=== PATIENT | male | born 1935 | race Caucasian/White ===

== ENCOUNTER 2020-07-24 20:53 | Inpatient (IN) | payer MEDICARE ==
[2020-07-24] MEDS ORDERED: NALOXONE 0.4 MG/ML 1 ML VIAL IV PRN (21:44)
[2020-07-24] MEDS ORDERED: ONDANSETRON 4 MG/2 ML VIAL IVP PRN (21:44)
--- NOTE | 2020-07-24 21:44 | ED ---
General Adult HPI - General Chief complaint: Abdominal Pain Stated complaint: Abd Pain Time Seen by Provider: 07/24/20 20:56 Source: patient, EMS Mode of arrival: EMS Limitations: no limitations - History of Present Illness Initial comments: Dictation was produced using [employer] dictation software. please excuse any grammatical, word or spelling errors. This patient was cared for during a federal and state declared state of emergency secondary to Covid 19 Chief Complaint: 85-year-old male presents to the emergency department for duod enal obstruction. History of Present Illness: An 85-year-old male he is transferred from [facility] emergency Department. Briefly, patient is a complaining of nausea and epigastric abdominal pain. He's had several days of this. He was seen at [place], weeks ago for the same symptoms. Patient states that he does have some epigastric abdominal pain. His CT was performed that showed significant distention of the stomach, first and second and third portions of the duodenum. Vision has serial troponins that were both 0.1. Prilosec on a 13.4. Hemoglobin of 17.9. Metabolic panel was within acceptable limits. Lipase was normal. The ROS documented in this emergency department record has been reviewed and confirmed by me. Those systems with pertinent positive or negative responses have been documented in the HPI. All other systems are other negative and/or noncontributory. PHYSICAL EXAM: General Impression: Alert and oriented x3, not in acute distress HEENT: Normocephalic atraumatic, extra-ocular movements intact, pupils equal and reactive to light bilaterally, mucous membranes moist. Cardiovascular: Heart regular rate and rhythm Chest: Able to complete full sentences, no retractions, no tachypnea Abdomen: abdomen soft, although epigastric tenderness, tympanitic to percussion Musculoskeletal: Pulses present and equal in all extremities, no peripheral edema Motor: no focal deficits noted Neurological: CN II-XII grossly intact, no focal motor or sensory deficits noted Skin: Intact with no visualized rashes Psych: Normal affect and mood ED course: 85-year-old male presents with duodenal obstruction vital signs upon arrival shows heart rate of 112. Patient has history of A. fib A flutter. He takes eliquis. EKG shows atrial flutter. Patient's well-appearing at bedside. Discussed patient case with general surgery who recommends NG tube placement. Dr. Dawkins recommends admitting to medicine with Gen. surgery consult. EKG interpretation: Ventricular rate 120, atrial flutter, QRS 82, QTc 463. No DE prolongation, no QTC prolongation, no ST or T-wave changes noted. - Related Data Allergies Allergy/AdvReac Type Severity Reaction Status Date / Time No Known Allergies Allergy Verified 07/24/20 21:02 Review of Systems ROS Statement: Those systems with pertinent positive or pertinent negative responses have been documented in the HPI. ROS Other: All systems not noted in ROS Statement are negative. Past Medical History Past Medical History: Atrial Flutter, Hypertension, Prostate Disorder History of Any Multi-Drug Resistant Organisms: None Reported Past Surgical History: Unable to Obtain Past Psychological History: No Psychological Hx Reported Smoking Status: Never smoker Past Alcohol Use History: Occasional Past Drug Use History: None Reported General Exam Limitations: no limitations Course Vital Signs 07/24/20 20:56 Temperature 98.3 F Pulse Rate 112 H Respiratory 18 Rate Blood Pressure 127/102 O2 Sat by Pulse 97 Oximetry Disposition Clinical Impression: Duodenal obstruction Disposition: ADMITTED IP TO [facility] Condition: Fair Referrals: Mariano Pro MD [Primary Care Provider] - 1-2 days Decision Time: 21:44
[2020-07-24] MEDS: SODIUM CHLORIDE 0.9% 1,000 ML IV SCH (22:19)
--- NOTE | 2020-07-25 02:10 | P.HPIM ---
History of Present Illness H&P Date: 07/25/20 The patient is an 85-year-old male with a PMH of mild dementia w/ history of sun-downing, hypertension and A. fib on Eliquis who was sent in from [facility] due to suspected bowel obstruction. The patient was a poor historian and thereby history obtained from the chart and from the daughter Sarah Martinez ([phone]). The daughter notes that he had presented to [facility] due to nausea, vomiting, and constipation. She notes that he was previously seen at [place] a few weeks ago for similar complaints and had also seen Dr Reynoso (GI) in the clinic. He has been experiencing 5-6 episodes of NBNB emesis daily for the past several weeks and that his last BM was [address] Reynoso had prescribed the patient Miralax and advised increased water intake. Daughter notes that over the past few years, the patient's mental status gradually deteriorated where he is now normally alert and oriented to person and place during the daytime and is more confused often at night. The patient denied abdominal pain at time of interview. He also denied additional complaints including chest pain, shortness of breath, fever, chills, cough, headaches, dizziness. The patient underwent an extensive evaluation at [facility] which was all reviewed. CT abdomen and pelvis revealed significant distention of the stomach and the first second and third portions of the duodenum along with retroperitoneal adenopathy in the periaortic region which may be the cause of the duodenal obstruction. Furthermore it revealed significant enlargement of the prostate with resulting elevation of the bladder floor along with 1.1 cm enhancing nodular density projecting from the anterior aspect of the right kidney with possibility of malignancy considered. Laboratory evaluation revealed a WBC count of 13.4, hemoglobin 17.9, platelets 245, sodium 134, potassium 3.5, chloride 95, CO2 31, BUN 13, creatinine 1.2, glucose 176, calcium 9.5, AST 14, ALT 14, T bili 1.0, Troponin I of 0.01, and lipase 85. EKG had revealed a flutter with variable AV block at 82 bpm. Review of Systems Pertinent positives and negatives as discussed in HPI, a complete review of systems was performed and all other systems are negative. Past Medical History Past Medical History: Atrial Flutter, Hypertension, Prostate Disorder History of Any Multi-Drug Resistant Organisms: None Reported Past Surgical History: Unable to Obtain Past Psychological History: No Psychological Hx Reported Smoking Status: Never smoker Past Alcohol Use History: Occasional Past Drug Use History: None Reported - Past Family History Mother Family Medical History: Diabetes Mellitus Medications and Allergies Home Medications Medication Instructions Recorded Confirmed Type Apixaban [Eliquis] 2.5 mg PO BID 07/24/20 07/24/20 History Metoprolol Tartrate [Lopressor] 50 mg PO BID 07/24/20 07/24/20 History amLODIPine [Norvasc] 2.5 mg PO HS 07/24/20 07/24/20 History lisinopriL 40 mg PO HS 07/24/20 07/24/20 History Allergies Allergy/AdvReac Type Severity Reaction Status Date / Time No Known Allergies Allergy Verified 07/24/20 22:08 Physical Exam Vitals: Vital Signs Temp Pulse Pulse Resp BP BP Pulse Ox 07/24/20 23:09 117 H 18 137/107 97 07/24/20 22:06 112 H 18 139/95 94 L 07/24/20 20:56 98.3 F 112 H 18 127/102 97 Intake and Output 07/24/20 07/24/20 07/25/20 14:59 22:59 06:59 Output Total 250 Balance -250 Output: Urine 250 Other: Voiding Method Urinal # Voids 0 Weight 90.718 kg 90.718 kg General: non toxic, no distress, appears younger than stated age, overweight Derm: no unusual rashes/lesions no unusual ecchymoses, warm, dry Head: atraumatic, normocephalic, symmetric Eyes: EOMI, no lid lag, anicteric sclera, pupils equal round reactive to light ENT: Nose and ears atraumatic, no thrush, no pharyngeal erythema Neck: No thyromegaly, no cervical lymphadenopathy, trachea midline, supple Mouth: no lip lesion, mucus membranes moist Cardiovascular: S1S2 reg, no murmur, positive posterior tibial pulse bilateral, no edema, capillary refill less than 2 seconds Lungs: CTA bilateral, no rhonchi, no rales , no accessory muscle use Abdominal: Nondistended, nontender to palpation, no guarding, no appreciable organomegaly Ext: no gross muscle atrophy, muscle strength 5 out of 5 in all 4 extremities grossly, no contractures, Neuro: CN II-XI grossly intact, light touch intact all 4 extremities, finger to nose within normal limits, Psych: Alert, oriented only to self, believes he is at his house Thrombosis Risk Factor Assmnt - Choose All That Apply Any of the Below Risk Factors Present?: Yes Each Factor Represents 1 point: Obesity (BMI >25) Other Risk Factors: Yes Each Risk Factor Represents 3 Points: Age 75 years or older Other congenital or acquired thrombophilia - If yes, enter type in comment: No Thrombosis Risk Factor Assessment Total Risk Factor Score: 4 Thrombosis Risk Factor Assessment Level: Moderate Risk Assessment and Plan Plan: Small bowel obstruction, possibly secondary to underlying malignancy -Surgery consulted -Patient ripped out his IV. Patient very unlikely to tolerate NGT placement for now. Attempt in am. -Oncology consult for further malignancy workup -C/w IVFs -Anti-emetics Elevated troponin -Patient denying chest pain or SOB -Trend for now -Cardiac monitoring Leukocytosis -Likely secondary to acute stressor -Monitor for now Hyperglycemia -Check A1C Hyponatremia, likely secondary to poor oral intake in setting of obstruction -Continue with IV fluids and monitor BMP Chronic conditions: Hypertension, A. fib/flutter -Continue with home medications DVT prophylaxis -Eliquis The patient is admitted with an anticipated greater than 2 midnight stay for evaluation of SBO CODE STATUS: Full Code Discussed with: Patient, daughter Anticipated discharge date: 2-[address]: Home A total of 35 minutes was spent on the care of this complex patient more than 50% of the time was spent in counseling and care coordination.
--- NOTE | 2020-07-25 06:39 | P.GSCN ---
History of Present Illness Consult date: 07/25/20 History of present illness: CHIEF COMPLAINT: Intractable nausea and vomiting with duodenal obstruction HISTORY OF PRESENT ILLNESS: The patient is a 85 year old male admitted as transfer from [facility] following intractable nausea and vomiting. At the outside institution, CT findings was consistent with duodenal obstruction resulting in his transfer Additional history is obtained by patient's nurse as the patient has baseline confusion. Per nursing report, patient has intractable nausea and vomiting ongoing for 1 month. Also he has one-week history of constipation . Reports of his from nursing. He is on blood thinner, Eliquis. Last dose was within the last 2 days. Patient denies any active abdominal pain or nausea at this time. He is comfortable in appearance. He has been nothing by mouth. PAST MEDICAL HISTORY: See list and reviewed PAST SURGICAL HISTORY: See list and reviewed MEDICATIONS: See list and reviewed ALLERGIES: See list and reviewed SOCIAL HISTORY: See list and reviewed FAMILY HISTORY: See list and reviewed REVIEW OF ORGAN SYSTEMS: CONSTITUTIONAL: No fevers or chills since admission EYES: Denies any trouble with vision. No glasses. HEENT: No difficulties with hearing. No nosebleeds. RESPIRATORY: Denies active troubles with breathing. No clinical history of recent pneumonia. CARDIOVASCULAR: Has atrial fibrillation and on chronic blood thinners. GASTROINTESTINAL: Recent intractable nausea vomiting with constipation. GENITOURINARY: No current blood in urine or increased urinary frequency. NEUROLOGICAL: Denies any numbness or tingling along the distal extremities. No seizure disorders or headaches. MUSCULOSKELETAL: Denies current back pain, stiffness or joint arthritis. SKIN: No current skin cancer. No rash. PSYCHIATRIC: No current depression or suicidal thoughts. Has mild dementia. ENDOCRINE: No current thyroid disorders. No blood sugar glucose intolerance. HEME/LYMPHATIC: Currently on blood thinners. No recent deep venous thrombosis. PHYSICAL EXAM: VITALS: Reviewed CONSTITUTIONAL: Well developed and in no acute distress. EYES: Conjuctivae without sclera icterus. Extraocular movements grossly intact. HEAD, EARS, NOSE, THROAT: Moist buccal mucosa. Head is atraumatic, normocephalic. No nasal drainage. Hears conversational speech. NECK: Supple. No thyroidomegaly. RESPIRATORY: Non-labored respirations and equal bilateral excursions. No gross wheezes. CARDIOVASCULAR: Irregular rate. Irregular rhythm. Extremities without moderate edema. Palpable 2+ radial pulses. ABDOMEN: Soft. No peritonitis. LYMPH: No neck lymphadenopathy. MUSCULOSKELETAL: Nail and fingers with good capillary refill. SKIN: Warm and well perfused with good skin turgor. NEUROLOGIC: Cranial nerves II through XII grossly intact. . No focal or lateralizing signs. PSYCH: Appropriate affect. Alert and oriented to person. CLINCAL LABS: Reviewed. WBC elevated at 13.1. Troponin mildly elevated 0.106. Creatinine mildly elevated 1.11. Coronary virus negative. EKG: Atrial flutter with variable AV block including septal infarct. MEDICAL RECORDS: Outside CT of the abdomen and pelvis report distention of the stomach including to duodenum. Lipase was normal. Serial troponins within normal limits. Hemoglobin was elevated over 15 due to dehydration. ASSESSMENT: 1. Intractable nausea and vomiting with duodenal obstruction 2. Atrial flutter 3. Chronic anticoagulation 4. Elevated hemoglobin due to dehydration PLAN: 1. Will proceed with upper endoscopy for diagnostic assessment. 2. Upper endoscopy with dilation also described. 3. Patient elevated risk for complications due to comorbidities of chronic anticoagulation including pre-existing cardiopulmonary disease 4. Nothing by mouth at this time 5. IV fluid hydration with markedly elevated hemoglobin and dehydration Thank you for this kind consultation. Past Medical History Past Medical History: Atrial Flutter, Hypertension, Prostate Disorder History of Any Multi-Drug Resistant Organisms: None Reported Past Surgical History: Unable to Obtain Past Psychological History: No Psychological Hx Reported Smoking Status: Never smoker Past Alcohol Use History: Occasional Past Drug Use History: None Reported - Past Family History Mother Family Medical History: Diabetes Mellitus Medications and Allergies Home Medications Medication Instructions Recorded Confirmed Type Apixaban [Eliquis] 2.5 mg PO BID 07/24/20 07/24/20 History Metoprolol Tartrate [Lopressor] 50 mg PO BID 07/24/20 07/24/20 History amLODIPine [Norvasc] 2.5 mg PO HS 07/24/20 07/24/20 History lisinopriL 40 mg PO HS 07/24/20 07/24/20 History Allergies Allergy/AdvReac Type Severity Reaction Status Date / Time No Known Allergies Allergy Verified 07/24/20 22:08 Surgical - Exam Vital Signs Temp Pulse Resp BP Pulse Ox 98.3 F 112 H 18 127/102 97 07/24/20 20:56 07/24/20 20:56 07/24/20 20:56 07/24/20 20:56 07/24/20 20:56 Results - Labs 07/25/20 06:44 07/25/20 06:44 Assessment and Plan (1) Intractable nausea and vomiting Current Visit: Yes Status: Acute Code(s): R11.2 - NAUSEA WITH VOMITING, UNSPECIFIED SNOMED Code(s): 695012429 (2) Constipation Current Visit: Yes Status: Acute Code(s): K59.00 - CONSTIPATION, UNSPECIFIED SNOMED Code(s): 43734919 (3) Atrial flutter Current Visit: Yes Status: Acute Code(s): I48.92 - UNSPECIFIED ATRIAL FLUTTER SNOMED Code(s): 5941166 (4) Chronic anticoagulation Current Visit: Yes Status: Acute Code(s): Z79.01 - ASSISTED (CURRENT) USE OF ANTICOAGULANTS SNOMED Code(s): 283979514 (5) Dementia Current Visit: Yes Status: Acute Code(s): F03.90 - UNSPECIFIED DEMENTIA WITHOUT BEHAVIORAL DISTURBANCE SNOMED Code(s): 38990337 (6) Duodenal obstruction Current Visit: Yes Status: Acute Code(s): K31.5 - OBSTRUCTION OF DUODENUM SNOMED Code(s): 57524286
[2020-07-25] MEDS: SODIUM CHLORIDE 0.9% 1,000 ML IV SCH ×3 (06:49→22:19)
[2020-07-25 07:28] LABS: Basophils # (A) 0.1 k/uL (0-0.2); Basophils % (A) 0 %; Eosinophils # (A) 0.1 k/uL (0-0.7); Eosinophils % (A) 1 %; Lymphocytes # (A) 3.3 k/uL (1.0-4.8); Lymphocytes % (A) 25 %; MCH 31.5 pg (25.0-35.0); MCV 92.5 fL (80.0-100.0); Mean Platelet Volume 7.8; Monocytes # (A) 1.3 k/uL (0-1.0); Monocytes % (A) 10 %; Neutrophils # (A) 7.9 k/uL (1.3-7.7); Neutrophils % (A) 60 %; Platelet Count 242 k/uL (150-450); RDW 12.3 % (11.5-15.5); WBC 13.1 k/uL (3.8-10.6)
[2020-07-25 07:41] LABS: Albumin 3.5 g/dL (3.5-5.0); Calcium 9.2 mg/dL (8.4-10.2); Magnesium 1.8 mg/dL (1.6-2.3); Potassium 4.2 mmol/L (3.5-5.1); Total Bilirubin 1.2 mg/dL (0.2-1.3); Total Protein 6.1 g/dL (6.3-8.2)
[2020-07-25] MEDS ORDERED: METOPROLOL TARTRATE 50 MG TAB PO SCH (09:00)
[2020-07-25] MEDS ORDERED: APIXABAN 2.5 MG TABLET PO SCH (09:00)
[2020-07-25] MEDS ORDERED: LIDOCAINE 1% INJ 10MG/ML (20 ML MDV) ONE (10:04)
[2020-07-25] MEDS ORDERED: PROPOFOL 10 MG/ML 20 ML VIAL IV ONE (10:04)
[2020-07-25] MEDS ORDERED: IV FLUID CONTINUATION 600 ML IV ONE (10:05)
--- NOTE | 2020-07-25 10:34 | P.PCN ---
Date of Procedure: 07/25/20 Description of Procedure: PREOPERATIVE DIAGNOSIS: Duodenal obstruction, abnormal computed tomography scan Intractable nausea and vomiting POSTOPERATIVE DIAGNOSIS: Upper esophageal obstruction Duodenal obstruction, abnormal computed tomography scan Intractable nausea and vomiting OPERATION: Attempted esophagogastroduodenoscopy aborted due to upper esophageal obstruction. SURGEON: Dana Regalado MD ANESTHESIA: MAC. INDICATIONS: The patient is a 85-year-old male who presents with intractable nausea and vomiting including abnormal CT of duodenal obstruction. Upper endoscopy was offered for diagnostic Susman the therapeutic management. Benefits and risks of the procedure were described. Informed consent was obtained. DESCRIPTION: The patient was brought into the endoscopy suite and laid in the left lateral decubitus position. A pediatric Olympus gastroscope was passed along the posterior oropharynx. Despite open airway, jaw-thrust, the scope could not pass beyond the posterior oropharynx/upper esophageal sphincter. The scope persistently retroflexed into the posterior oropharynx. Features of Zenker's diverticulum cannot be excluded including hypertensive upper esophageal sphincter. Patient was awakened without sequelae. FINDINGS: Hypertensive upper esophageal sphincter prohibiting advancement of scope into the esophagus Suspicious features of Zenker's diverticulum cannot be excluded RECOMMENDATIONS: 1. Recommend ENT referral for workup Zenker's diverticulum 2. Nothing by mouth at this time 3. Additional diagnostic studies may include CT chest/neck including modified barium swallow pending ENT assessment
[2020-07-25] MEDS ORDERED: SODIUM CHLORIDE 0.9% 1,000 ML IV ONE (10:36)
[2020-07-25] MEDS ORDERED: METOPROLOL TARTRATE 5 MG/5 ML VIAL IVP PRN (11:15)
--- NOTE | 2020-07-25 11:20 | P.PN ---
Subjective Progress Note Date: 07/25/20 Principal diagnosis: Esophageal obstruction Patient was seen and evaluated by me today. He is awake and alert. He appeared confused. He was only oriented to himself. Nursing staff informed me that patient has underlying dementia. Patient denies any complaint this morning. He denies any chest pain or nausea. He said that he did not have a bowel movement for several days. He is currently nothing by mouth and scheduled for EGD. Objective - Vital Signs Vital signs: Vital Signs Temp 98.3 F 07/25/20 07:45 Pulse 84 07/25/20 07:45 Resp 20 07/25/20 07:45 BP 132/73 07/25/20 07:45 Pulse Ox 94 L 07/25/20 07:45 Intake & Output 07/24/20 07/25/20 07/25/20 18:59 06:59 18:59 Intake Total 50 Output Total 250 Balance -250 50 Weight 71.5 kg Intake: IV 50 Oral 0 Output: Urine 250 Other: Voiding Method Urinal # Voids 0 0 # Bowel Movements 0 - Exam General: The patient is awake and alert, in no distress Eye: there is normal conjunctiva bilaterally. Neck: The neck is supple, there is no JVD. Cardiovascular: Normal S1-S2, no S3-S4, no murmurs. Respiratory: Lungs clear to auscultation bilaterally Gastrointestinal: Abdomen is soft, nontender Musculoskeletal: There is no pedal edema. Neurological:. Speech is normal. Skin: Skin is warm and dry - Labs CBC & Chem 7: 07/25/20 06:44 07/25/20 06:44 Labs: Abnormal Lab Results - Last 24 Hours (Table) 07/25/20 07/25/20 07/25/20 Range/Units 06:44 06:44 06:44 WBC 13.1 H (3.8-10.6) k/uL Neutrophils # 7.9 H (1.3-7.7) k/uL Monocytes # 1.3 H (0-1.0) k/uL Chloride 97 L (98-107) mmol/L Carbon Dioxide 32 H (22-30) mmol/L Glucose 120 H (74-99) mg/dL Troponin I 0.106 H* (0.000-0.034) ng/mL Total Protein 6.1 L (6.3-8.2) g/dL Assessment and Plan Assessment: This is a 85-year-old male with complex past medical history noted below significant for underlying dementia who was transferred from [facility] to 2 suspected bowel obstruction. Patient was evaluated in the ER and currently admitted to the hospital for further management of his medical problems noted below. 1. Esophageal and Duodenal obstruction: Patient was seen and evaluated by general surgery. Attempted EGD today was aborted secondary to esophageal obstruction. ENT consulted for further evaluation and possible Zenker's diverticulum. Computed tomography scan of the abdomen and pelvis at the outside hospital shows significant distention of the stomach and first, second, and third portion of the duodenal along with retroperitoneal adenopathy 2. Troponin elevation, most likely non-thrombotic troponin leak secondary to rapid ventricular response on presentation. Patient denies any chest pain. 12- lead EKG showed no acute ischemic changes. Cardiology consulted for further evaluation. We will continue to trend troponin. Echocardiogram ordered. 3. Underlying dementia with history of sundowning. Patient daughter Sarah was contacted the admitting physician. Phone #[phone] 4. Chronic medical problems A. fib on anticoagulation with Eliquis, hypertension, Continue nothing by mouth for now No oral medication at this time May use IV metoprolol as needed Barium swallow study ordered by neurosurgery Hold off on anticoagulation for now
[2020-07-25] MEDS ORDERED: HEPARIN SODIUM,PORCINE 5,000 UNIT/ML 1 ML VIAL IV PRN (12:06)
[2020-07-25] MEDS ORDERED: HEPARIN SODIUM,PORCINE 5,000 UNIT/ML 1 ML VIAL IV ONE (12:06)
--- NOTE | 2020-07-25 12:09 | P.CRDCN ---
History of Present Illness History of present illness: HISTORY OF PRESENTING ILLNESS This is a pleasant 85-year-old male past medical history significant for chronic persistent atrial fibrillation on long-term anticoagulation and hypertension. Bola follows in the office with Dr. Valles. We have been asked to see in consultation for elevated troponin. Was transferred here from [facility] emergency department. He apparently has been suffering with constipation for the previous one week. He has been following as an outpatient with Dr. Juani Reynoso due to this. He was also having nausea/vomiting. He underwent a computed tomography scan consistent with duodenal obstruction. He has been evaluated by Dr. Regalado who took the patient for an EGD this morning and was unsuccessful at passing the probe due to suspected esophageal obstruction. She has requested ENT evaluation and CT of the chest/neck. He is currently sitting u p in his bed in no acute distress. He is comfortable with no symptoms of chest pain, shortness of breath, dizziness or palpitations. He is conversing appropriately however is extremely confused. He is unable to verbalize why he came to the hospital. He is unable to recall his past medical history, circumstances of this hospitalization were the time. He saw Dr. Valles in the office in 2019 and at that time as Eliquis was decreased to 2.5 mg twice a day secondary to black stools. Dr. Valles recommended outpatient follow-up with GI for further recommendations and endoscopies. DIAGNOSTICS EKG reveals typical 2:1 atrial flutter. Laboratory reviewed, WBC 13.4, hemoglobin 17.9, platelets 245, sodium 134, potassium 3.5, creatinine 1.2, troponin 0.106. Current cardiac medications include Eliquis 2.5 mg twice a day, Lopressor 50 mg twice a day, amlodipine 2.5 mg at bedtime and lisinopril 40 mg at bedtime. Most recent echocardiogram obtained in the office August 2019 revealed preserved LV systolic function, [id number] mitral regurgitation, moderate tricuspid regurgitation and mild pulmonary hypertension. Most recent stress test performed in the office December 2019 with a Lexiscan stress test was negative for reversible ischemia. REVIEW OF SYSTEMS At the time of my exam: CONSTITUTIONAL: Denies fever or chills. CARDIOVASCULAR: Denies chest pain, shortness of breath, orthopnea, PND or palpitations. RESPIRATORY: Denies cough. GASTROINTESTINAL: Denies abdominal pain, diarrhea, constipation, nausea or vomiting. MUSCULOSKELETAL: Denies myalgias. NEUROLOGIC: Denies numbness, tingling, headacbe or weakness. ENDOCRINE: Denies fatigue, weight change, polydipsia or polyurina. GENITOURINARY: Denies burning, hematuria or urgency with micturation. HEMATOLOGIC: Denies history of anemia or bleeding. PHYSICAL EXAMINATION Blood pressure 132/73 heart rate 84 afebrile and maintaining oxygen saturation on room air. CONSTITUTIONAL: No apparent distress. HEENT: Head is normocephalic. Pupils are equal, round. Sclerae anicteric. Mucous membranes of the mouth are moist. No JVD. No carotid bruit. CHEST EXAMINATION: Lungs are clear to auscultation. No chest wall tenderness is noted on palpation or with deep breathing. HEART EXAMINATION: Irregular rate and rhythm. S1, S2 heard. No murmurs, gallops or rub. ABDOMEN: Soft, nontender. Positive bowel sounds. EXTREMITIES: 2+ peripheral pulses, no lower extremity edema and no calf tenderness. NEUROLOGIC EXAMINATION: Patient is awake, alert and oriented x3. ASSESSMENT Duodenal obstruction Leukocytosis Elevated troponin Altered mental status Hypertension Chronic persistent atrial fibrillation on eliquis History of GI bleeding History of dementia PLAN Initiate IV heparin infusion for thromboemoblic protection. Change lopressor to 5mg IV BID scheduled. Obtain 2D echocardiogram and doppler study to assess cardiac structure and fun ction. Further recommendations to follow based on clinical course. Thank you kindly for this consultation. Nurse Practitioner note has been reviewed, I agree with a documented findings and plan of care. Patient was seen and examined. Past Medical History Past Medical History: Atrial Flutter, Hypertension, Prostate Disorder History of Any Multi-Drug Resistant Organisms: None Reported Past Surgical History: Unable to Obtain Past Psychological History: No Psychological Hx Reported Smoking Status: Never smoker Past Alcohol Use History: Occasional Past Drug Use History: None Reported - Past Family History Mother Family Medical History: Diabetes Mellitus Medications and Allergies Home Medications Medication Instructions Recorded Confirmed Type Apixaban [Eliquis] 2.5 mg PO BID 07/24/20 07/24/20 History Metoprolol Tartrate [Lopressor] 50 mg PO BID 07/24/20 07/24/20 History amLODIPine [Norvasc] 2.5 mg PO HS 07/24/20 07/24/20 History lisinopriL 40 mg PO HS 07/24/20 07/24/20 History Allergies Allergy/AdvReac Type Severity Reaction Status Date / Time No Known Allergies Allergy Verified 07/24/20 22:08 Physical Exam Vitals: Vital Signs Temp Pulse Pulse Resp BP BP Pulse Ox 07/25/20 07:45 98.3 F 84 20 132/73 94 L 07/25/20 05:10 98.3 F 111 H 17 152/99 95 07/25/20 03:09 18 07/24/20 23:09 117 H 18 137/107 97 07/24/20 22:06 112 H 18 139/95 94 L 07/24/20 20:56 98.3 F 112 H 18 127/102 97 Intake and Output 07/24/20 07/25/20 07/25/20 22:59 06:59 14:59 Intake Total 50 Output Total 250 Balance -250 50 Intake: IV 50 Oral 0 Output: Urine 250 Other: Voiding Method Urinal # Voids 0 0 # Bowel Movements 0 Weight 90.718 kg 71.5 kg Results 07/25/20 06:44 07/25/20 06:44 Cardiac Enzymes 07/25/20 07/25/20 Range/Units 06:44 06:44 AST 21 (17-59) U/L Troponin I 0.106 H* (0.000-0.034) ng/mL CBC 07/25/20 Range/Units 06:44 WBC 13.1 H (3.8-10.6) k/uL RBC 5.40 (4.30-5.90) m/uL Hgb 17.0 (13.0-17.5) gm/dL Hct 50.0 (39.0-53.0) % Plt Count 242 (150-450) k/uL Comprehensive Metabolic Panel 07/25/20 Range/Units 06:44 Sodium 137 (137-145) mmol/L Potassium 4.2 (3.5-5.1) mmol/L Chloride 97 L (98-107) mmol/L Carbon Dioxide 32 H (22-30) mmol/L BUN 16 (9-20) mg/dL Creatinine 1.11 (0.66-1.25) mg/dL Glucose 120 H (74-99) mg/dL Calcium 9.2 (8.4-10.2) mg/dL AST 21 (17-59) U/L ALT 17 (4-49) U/L Alkaline Phosphatase 54 (38-126) U/L Total Protein 6.1 L (6.3-8.2) g/dL Albumin 3.5 (3.5-5.0) g/dL Current Medications Generic Name Dose Route Start Last Admin Trade Name Freq PRN Reason Stop Dose Admin Amlodipine Besylate 2.5 mg 07/25/20 21:00 Amlodipine 2.5 Mg Tab PO HS DOMINIQUE Apixaban 2.5 mg 07/25/20 09:00 Apixaban 2.5 Mg Tablet PO BID DOMINIQUE Sodium Chloride 1,000 mls @ 120 mls/hr 07/24/20 21:45 07/25/20 06:49 Saline 0.9% IV 120 mls/hr .Q8H20M DOMINIQUE Administration Sodium Chloride 1,000 mls @ 999 mls/hr 07/25/20 10:36 Saline 0.9% IV 07/25/20 11:36 .Q1H1M ONE Lisinopril 40 mg 07/25/20 21:00 Lisinopril 20 Mg Tab PO HS DOMINIQUE Metoprolol Tartrate 50 mg 07/25/20 09:00 Metoprolol Tartrate 50 Mg Tab PO BID DOMINIQUE Naloxone HCl 0.2 mg 07/24/20 21:44 Naloxone 0.4 Mg/Ml 1 Ml Vial IV Q2M PRN Opioid Reversal Ondansetron HCl 4 mg 07/24/20 21:44 Ondansetron 4 Mg/2 Ml Vial IVP Q8HR PRN Nausea And Vomiting Intake and Output 07/24/20 07/25/20 07/25/20 22:59 06:59 14:59 Intake Total 50 Output Total 250 Balance -250 50 Intake: IV 50 Oral 0 Output: Urine 250 Other: Voiding Method Urinal # Voids 0 0 # Bowel Movements 0 Weight 90.718 kg 71.5 kg 07/25/20 06:44 07/25/20 06:44
[2020-07-25 12:27] LABS: INR 1.1 (<1.2); Partial Thromboplastin Time 23.6 sec (22.0-30.0); Prothrombin Time 11.5 sec (9.0-12.0)
--- NOTE | 2020-07-25 12:40 | XR ---
EXAMINATION TYPE: XR abdomen 2V DATE OF EXAM: 07/25/2020 CLINICAL HISTORY: Pain and constipation. TECHNIQUE: Supine and upright views of the abdomen are obtained. COMPARISON: Outside CT from one day earlier. FINDINGS: Persistent significantly distended stomach with air-fluid level. There is progression of co ntrast in nondilated distal bowel loops into nondistended colonic loops along the periphery. Contrast from recent CT is filling bladder with mild trabeculated wall. Enlarged prostate gland noted on CT. Lung bases remain clear. No free air. IMPRESSION: Persistent severe gastric dilatation extending into duodenum. Ligament of Treitz cannot b e identified in normal position. Underlying malrotation not excluded. Advise nasogastric tube decompr ession. A [place] level critical message alert has been initiated for Dana Regalado via the [employer] Critical Results System on 07/25/2020 12:38 PM. This message alert has been sent to Dana Regalado via the preferences provided by the clinician for the receipt of Radiology Critical Findings. Linkdex e ID [id number].
[2020-07-25] MEDS: HEPARIN SOD,PORK IN 0.45% NACL 25,000 UNIT in 0.45% NACL 1 250ML.BAG IV SCH (12:51)
--- NOTE | 2020-07-25 15:31 | CT ---
EXAMINATION TYPE: CT neck chest w con DATE OF EXAM: 07/25/2020 COMPARISON: Abdomen CT scan 07/24/2020 HISTORY: failed EGD CT DLP: 516.5 mGycm Automated exposure control for dose reduction was used. CONTRAST: Performed with IV Contrast, patient injected with 100 mL of Isovue 300. Images were obtained from the level of the top of the frontal sinuses to the diaphragm with IV contra st. There is fairly normal aeration of the paranasal sinuses. Orbital margins are intact. There is no tyrese dence of orbital mass. Parotid glands are symmetric. Submandibular salivary glands are symmetric. Thy roid gland is symmetric. I see no significant cervical adenopathy. Tongue appears normal. Epiglottis is normal. There is some asymmetric increased soft tissue on the anterior right side of the orophary nx. This appears to be enlarged right tonsil. There is no evidence of superior mediastinal adenopathy. Thoracic aorta is atheromatous. There is no aneurysm or dissection. There is no sign of esophageal mass. There is minimal subsegmental atelectasis at the lung bases. There is no pleural effusion. There is n o pericardial effusion. There is no evidence of a pulmonary mass. There is some spurring in the lower thoracic spine. There is spurring in the thoracic spine. Sternum is intact. There is large fluid-florecita led stomach. Spleen appears intact. IMPRESSION: Dilated fluid-filled stomach could relate to gastric outlet obstruction. No evidence of esophageal mass. Asymmetric enlargement of the right tonsil. Dilated stomach also evident on the [place] CT scan yesterday.
--- NOTE | 2020-07-25 17:03 | P.PN ---
Progress Note - Text Progress Note Date: 07/25/20 at bedside. Daughter Caitlyn on the phone. Conference call with family and patient's case reviewed. Patient has been having problems for over 1 month. He has poor appetite. He does not re-collect spitting up his saliva. His at bedside confirms the severity of his memory loss including recent short-term memory. Spoke with oncology as well. Neck and chest CT also obtained and reviewed without adenopathy or mass. Plan for esophagram for esophageal dysmotility. May try repeat upper endoscopy following completion of studies. For dilated stomach which is confirmed chronic, may need operative decompression should less invasive attempts be unsuccessful. ENT consulted but will follow as outpatient. Will follow closely. Updates to family performed with care plan described. Surgical intervention also on hold due to recent Eliquis use.
[2020-07-25] MEDS: METOPROLOL TARTRATE 5 MG/5 ML VIAL IVP SCH (20:06)
[2020-07-25] MEDS ORDERED: amLODIPine 2.5 MG TAB PO SCH (21:00)
[2020-07-25] MEDS ORDERED: lisinopriL 20 MG TAB PO SCH (21:00)
[2020-07-26] MEDS: SODIUM CHLORIDE 0.9% 1,000 ML IV SCH (05:43)
[2020-07-26 07:49] LABS: Basophils % (A) 0 %; Eosinophils # (A) 0.1 k/uL (0-0.7); Eosinophils % (A) 1 %; HCT 45.1 % (39.0-53.0); HGB 14.6 gm/dL (13.0-17.5); Lymphocytes # (A) 2.8 k/uL (1.0-4.8); Lymphocytes % (A) 31 %; MCHC 32.4 g/dL (31.0-37.0); MCV 92.7 fL (80.0-100.0); Mean Platelet Volume 7.6; Monocytes % (A) 11 %; Neutrophils # (A) 4.9 k/uL (1.3-7.7); Neutrophils % (A) 54 %; Platelet Count 204 k/uL (150-450); RBC 4.86 m/uL (4.30-5.90); RDW 12.7 % (11.5-15.5); WBC 9.1 k/uL (3.8-10.6)
--- NOTE | 2020-07-26 07:59 | P.CONS ---
History of Present Illness - Reason for Consult Consult date: 07/25/20 [place] Obstruction concern of malignancy Requesting physician: Golden Melchor - Chief Complaint Nusea and Oscar - History of Present Illness Mr. Ornelas is a 85 year old male who initially presented to outside hospital, [facility] with complaints of intractable nausea and vomiting. CY was performed and findings was consistent with duodenal obstruction resulting in his transfer to [facility]. Patient is poor historian, per medical record has been having symptoms of constipation and intermittent vomiting over the past month. He is on blood thinner, Eliquis. He was evaluated by general surgery and plan for EGD to further assess. Review of Systems ROS unobtainable: due to mental status Past Medical History Past Medical History: Atrial Flutter, Hypertension, Prostate Disorder History of Any Multi-Drug Resistant Organisms: None Reported Past Surgical History: Unable to Obtain Past Psychological History: No Psychological Hx Reported Smoking Status: Never smoker Past Alcohol Use History: Occasional Past Drug Use History: None Reported - Past Family History Mother Family Medical History: Diabetes Mellitus Medications and Allergies Home Medications Medication Instructions Recorded Confirmed Type Apixaban [Eliquis] 2.5 mg PO BID 07/24/20 07/24/20 History Metoprolol Tartrate [Lopressor] 50 mg PO BID 07/24/20 07/24/20 History amLODIPine [Norvasc] 2.5 mg PO HS 07/24/20 07/24/20 History lisinopriL 40 mg PO HS 07/24/20 07/24/20 History Allergies Allergy/AdvReac Type Severity Reaction Status Date / Time No Known Allergies Allergy Verified 07/24/20 22:08 Physical Exam Vitals: Vital Signs Temp Pulse Pulse Resp BP BP Pulse Ox 07/25/20 07:45 98.3 F 84 20 132/73 94 L 07/25/20 05:10 98.3 F 111 H 17 152/99 95 07/25/20 03:09 18 07/24/20 23:09 117 H 18 137/107 97 07/24/20 22:06 112 H 18 139/95 94 L 07/24/20 20:56 98.3 F 112 H 18 127/102 97 Intake and Output 07/24/20 07/25/20 07/25/20 22:59 06:59 14:59 Intake Total 0 Output Total 250 Balance -250 0 Intake: Oral 0 Output: Urine 250 Other: Voiding Method Urinal # Voids 0 0 # Bowel Movements 0 Weight 90.718 kg 71.5 kg - Constitutional General appearance: cooperative, no acute distress - EENT Eyes: EOMI ENT: hard of hearing, NA/AT - Respiratory Respiratory: bilateral: diminished - Cardiovascular Rhythm: irregularly irregular - Gastrointestinal General gastrointestinal: decreased bowel sounds - Integumentary Integumentary: pale - Neurologic unable - Musculoskeletal Musculoskeletal: generalized weakness - Psychiatric dementia poor historian Results CBC & Chem 7: 07/26/20 06:59 07/25/20 06:44 Labs: Abnormal Lab Results - Last 24 Hours (Table) 07/25/20 07/25/20 07/25/20 Range/Units 06:44 06:44 06:44 WBC 13.1 H (3.8-10.6) k/uL Neutrophils # 7.9 H (1.3-7.7) k/uL Monocytes # 1.3 H (0-1.0) k/uL Chloride 97 L (98-107) mmol/L Carbon Dioxide 32 H (22-30) mmol/L Glucose 120 H (74-99) mg/dL Troponin I 0.106 H* (0.000-0.034) ng/mL Total Protein 6.1 L (6.3-8.2) g/dL Assessment and Plan (1) Atrial flutter Current Visit: Yes Status: Acute Code(s): I48.92 - UNSPECIFIED ATRIAL FLUTTER SNOMED Code(s): 2868689 (2) Chronic anticoagulation Current Visit: Yes Status: Acute Code(s): Z79.01 - OYSTER FISHERMAN (CURRENT) USE OF ANTICOAGULANTS SNOMED Code(s): 866874444 (3) Dementia Current Visit: Yes Status: Acute Code(s): F03.90 - UNSPECIFIED DEMENTIA WITHOUT BEHAVIORAL DISTURBANCE SNOMED Code(s): 15382982 (4) Duodenal obstruction Current Visit: Yes Status: Acute Code(s): K31.5 - OBSTRUCTION OF DUODENUM SNOMED Code(s): 22496657 (5) Intractable nausea and vomiting Current Visit: Yes Status: Acute Code(s): R11.2 - NAUSEA WITH VOMITING, UNSPECIFIED SNOMED Code(s): 056291410 Plan: Discussed with general surgery and given high blockage and low blockage unable to perform colonoscopy. Await ENT evaluation . Monitor for ischemic bowel and infection Del check CEA
[2020-07-26] MEDS: METOPROLOL TARTRATE 5 MG/5 ML VIAL IVP SCH ×2 (08:00→19:48)
[2020-07-26 08:44] LABS: Calcium 8.4 mg/dL (8.4-10.2); Magnesium 1.8 mg/dL (1.6-2.3); Potassium 3.8 mmol/L (3.5-5.1)
--- NOTE | 2020-07-26 12:24 | FL ---
EXAMINATION TYPE: FL barium swallow DATE OF EXAM: 07/26/2020 CLINICAL INDICATION: 85-year-old male dysphagia, Zenker's diverticulum. COMPARISON: Correlation CT 07/25/2020 Total Fluoroscopy Time: 2 minutes 4 seconds Total images: 37 FINDINGS: The initial few swallows resulted in large amount of jack aspiration with barium extending down into the right lower lobe bronchi. We suspect that this was due to the patient not expecting such a thick consistency of the liquid barium. However, subsequent swallows did demonstrate episodes of transient penetration. In addition, there is moderate thickening of the cricopharyngeus muscle noted. No Zenke r's diverticulum. Otherwise, the cervical and thoracic portions have a normal course and caliber. Occasional mild terti antonio peristaltic waves are noted. The mucosa is normal and no persistent filling defect is encountered . There is a tiny hiatal hernia visualized. Due to the previous aspiration, supine/prone imaging was no t performed and effervescent granules were not utilized. IMPRESSION: 1. Large amount of jack aspiration with barium extending down into the right lower lobe. Subsequentl y multiple episodes of transient penetration. The aspiration may have been due to the patient not exp ecting such a thick consistency of liquid barium. Speech pathology evaluation recommended. 2. Moderate CP hypertrophy/spasm without jack obstruction. 3. No evidence for Zenker's diverticulum. 4. Tiny hiatal hernia.
--- NOTE | 2020-07-26 13:00 | ECHOF ---
Referral Reason:elev trop MEASUREMENTS -------- HEIGHT: 175.3 cm WEIGHT: 72.1 kg BP: 131/72 RVIDd: 3.5 cm (< 3.3) IVSd: 1.7 cm (0.6 - 1.1) LVIDd: 3.1 cm (3.9 - 5.3) LVPWd: 1.9 cm (0.6 - 1.1) IVSs: 1.9 cm LVIDs: 2.9 cm LVPWs: 1.8 cm LA Diam: 4.2 cm (2.7 - 3.8) LAESV Index (A-L): 38.11 ml/m Ao Diam: 3.1 cm (2.0 - 3.7) AV Cusp: 1.1 cm (1.5 - 2.6) LA Diam: 4.0 cm (2.7 - 3.8) MV EXCURSION: 19.089 mm (> 18.000) MV EF SLOPE: 110 mm/s (70 - 150) EPSS: 0.4 cm RAP: 5.00 mmHg RVSP: 35.09 mmHg FINDINGS -------- Undetermined rhythm. This was a technically good study. The left ventricular size is normal. There is severe concentric left ventricular hypertrophy. Ove rall left ventricular systolic function is normal with, an EF between 60 - 65 %. The right ventricle is normal in size. LA is moderately dilated 34-39 ml/m2 The right atrial size is normal. There is mild aortic valve sclerosis. There is no evidence of aortic regurgitation. Mild mitral regurgitation is present. Mild tricuspid regurgitation present. There is mild pulmonary hypertension. The right ventricular systolic pressure, as measured by Doppler, is 35.09mmHg. Trace/mild (physiologic) pulmonic regurgitation. The aortic root size is normal. There is no pericardial effusion. CONCLUSIONS -------- 1. The left ventricular size is normal. 2. There is severe concentric left ventricular hypertrophy. 3. Overall left ventricular systolic function is normal with, an EF between 60 - 65 %. 4. The right ventricle is normal in size. 5. LA is moderately dilated 34-39 ml/m2 6. The right atrial size is normal. 7. There is mild aortic valve sclerosis. 8. Mild mitral regurgitation is present. 9. Mild tricuspid regurgitation present. 10. There is mild pulmonary hypertension. 11. The right ventricular systolic pressure, as measured by Doppler, is 35.09mmHg. 12. Trace/mild (physiologic) pulmonic regurgitation. 13. The aortic root size is normal. 14. There is no pericardial effusion. [employer] SUPERVISOR: Jolene Zimmerman RDCS
--- NOTE | 2020-07-26 13:04 | P.PN ---
Subjective Progress Note Date: 07/26/20 Principal diagnosis: Esophageal obstruction Patient is awake and alert today. No acute events overnight. He is scheduled for barium swallow study this morning. Objective - Vital Signs Vital signs: Vital Signs Temp 98 F 07/26/20 08:00 Pulse 85 07/26/20 11:29 Resp 18 07/26/20 11:29 BP 142/90 07/26/20 11:29 Pulse Ox 96 07/26/20 11:29 Intake & Output 07/25/20 07/26/20 07/26/20 18:59 06:59 18:59 Intake Total 50 1920 Output Total 200 250 Balance -150 1920 -250 Weight 72.5 kg Intake: IV 50 Intake, IV Titration 1920 Amount Sodium Chloride 0.9% 1, 1920 000 ml @ 120 mls/hr IV . Q8H20M [facility] Rx#:[id number] Oral 0 Output: Urine 200 250 Other: Voiding Method Urinal # Voids 0 1 1 # Bowel Movements 0 1 - Exam General: The patient is awake and alert, in no distress Eye: there is normal conjunctiva bilaterally. Neck: The neck is supple, there is no JVD. Cardiovascular: Normal S1-S2, no S3-S4, no murmurs. Respiratory: Lungs clear to auscultation bilaterally Gastrointestinal: Abdomen is soft, nontender Musculoskeletal: There is no pedal edema. Neurological:. Speech is normal. Skin: Skin is warm and dry - Labs CBC & Chem 7: 07/26/20 06:59 07/26/20 06:59 Labs: Abnormal Lab Results - Last 24 Hours (Table) 07/25/20 07/25/20 07/26/20 Range/Units 06:44 19:30 06:59 APTT 50.7 H 57.9 H (22.0-30.0) sec Hemoglobin A1c 6.2 H (4.0-6.0) % Assessment and Plan Assessment: This is a 85-year-old male with complex past medical history noted below significant for underlying dementia who was transferred from [facility] to 2 suspected bowel obstruction. Patient was evaluated in the ER and currently admitted to the hospital for further management of his medical problems noted below. 1. Esophageal and Duodenal obstruction: Patient was seen and evaluated by general surgery. Attempted EGD was aborted secondary to esophageal obstruction. ENT consulted for further evaluation and possible Zenker's diverticulum. Computed tomography scan of the abdomen and pelvis at the outside hospital shows significant distention of the stomach and first, second, and third portion of the duodenal along with retroperitoneal adenopathy. Patient underwent barium esophagogram showing evidence of large amount aspiration with barium extending down into the right lower lobe. Speech pathology consulted for further evaluation. No evidence of Zenker's diverticulum 2. Troponin elevation, most likely non-thrombotic troponin leak secondary to rapid ventricular response on presentation. Patient denies any chest pain. 12- lead EKG showed no acute ischemic changes. Troponin peaked at 0.1 Cardiology consulted for further evaluation. I ordered echocardiogram 3. Underlying dementia. Patient daughter Sarah Phone #[phone] 4. Chronic medical problems A. fib on anticoagulation with Eliquis (currently on IV heparin per cardiology), hypertension, Continue nothing by mouth for now No oral medication at this time IV metoprolol twice a day Awaiting speech pathology evaluation Awaiting further recommendation from general surgery May consider TPN within the next couple of days if prolonged nothing by mouth status continues Change IV fluid to D5/half-normal saline at 75 mL per hour
--- NOTE | 2020-07-26 13:26 | P.PN ---
Subjective Progress Note Date: 07/26/20 Principal diagnosis: Dysphagia Patient seen and evaluated If unable to further evaluate at our facility with scope, recommend transfer to tertiary care. Objective - Vital Signs Vital signs: Vital Signs Temp 98 F 07/26/20 08:00 Pulse 85 07/26/20 11:29 Resp 18 07/26/20 11:29 BP 142/90 07/26/20 11:29 Pulse Ox 96 07/26/20 11:29 Intake & Output 07/25/20 07/26/20 07/26/20 18:59 06:59 18:59 Intake Total 50 1920 Output Total 200 250 Balance -150 1920 -250 Weight 72.5 kg Intake: IV 50 Intake, IV Titration 1920 Amount Sodium Chloride 0.9% 1, 1920 000 ml @ 120 mls/hr IV . Q8H20M [facility] Rx#:[id number] Oral 0 Output: Urine 200 250 Other: Voiding Method Urinal # Voids 0 1 1 # Bowel Movements 0 1 - Exam - Constitutional General appearance: cooperative, no acute distress - EENT Eyes: EOMI ENT: hard of hearing, NA/AT - Respiratory Respiratory: bilateral: diminished - Cardiovascular Rhythm: irregularly irregular - Gastrointestinal General gastrointestinal: decreased bowel sounds - Integumentary Integumentary: pale - Neurologic unable - Musculoskeletal Musculoskeletal: generalized weakness - Psychiatric dementia poor historian - Labs CBC & Chem 7: 07/27/20 06:40 07/27/20 06:40 Labs: Abnormal Lab Results - Last 24 Hours (Table) 07/25/20 07/25/20 07/26/20 Range/Units 06:44 19:30 06:59 APTT 50.7 H 57.9 H (22.0-30.0) sec Hemoglobin A1c 6.2 H (4.0-6.0) % Assessment and Plan (1) Atrial flutter Current Visit: Yes Status: Acute Code(s): I48.92 - UNSPECIFIED ATRIAL FLUTTER SNOMED Code(s): 4529516 (2) Chronic anticoagulation Current Visit: Yes Status: Acute Code(s): Z79.01 - NURSING HOME (CURRENT) USE OF ANTICOAGULANTS SNOMED Code(s): 810431081 (3) Dementia Current Visit: Yes Status: Acute Code(s): F03.90 - UNSPECIFIED DEMENTIA WITHOUT BEHAVIORAL DISTURBANCE SNOMED Code(s): 31395125 (4) Duodenal obstruction Current Visit: Yes Status: Acute Code(s): K31.5 - OBSTRUCTION OF DUODENUM SNOMED Code(s): 75884381 (5) Intractable nausea and vomiting Current Visit: Yes Status: Acute Code(s): R11.2 - NAUSEA WITH VOMITING, UNSPECIFIED SNOMED Code(s): 770172999 Plan: Discussed with general surgery and given high blockage and low blockage unable to perform colonoscopy. Patient may require transfer to tertiary care for further diagnostic work-up that cannot be performed here. Physician Attest" I have completed the full history and physical and agree with above dictation, dictated as a scribe.
[2020-07-26] MEDS: HEPARIN SOD,PORK IN 0.45% NACL 25,000 UNIT in 0.45% NACL 1 250ML.BAG IV SCH (13:27)
[2020-07-26] MEDS: DEXTROSE 5%-0.45% NACL 1,000 ML IV SCH (13:28)
--- NOTE | 2020-07-26 15:14 | P.PN ---
Subjective This is a pleasant 85-year-old male past medical history significant for chronic persistent atrial fibrillation on long-term anticoagulation and hypertension. He follows in the office with Dr. Valles. We have been asked to see in consultation for elevated troponin. Was transferred here from [facility] emergency department. He apparently has been suffering with constipation for the previous one week. He has been following as an outpatient with Dr. Juani Reynoso due to this. He was also having nausea/vomiting. He underwent a computed tomography scan consistent with duodenal obstruction. He has been evaluated by Dr. Regalado who took the patient for an EGD this morning and was unsuccessful at passing the probe due to suspected esophageal obstruction. She has requested ENT evaluation and CT of the chest/neck. 07/26/20 He is lying in bed, comfortable with no symptoms of chest pain, shortness of breath, dizziness or palpitations. He is conversing appropriately however is extremely confused, alert and oriented only to person. He is unable to verbalize why he came to the hospital. Does not know he is in the hospital, unaware of the year or month. Laboratory reviewed, WBC 9.1, hemoglobin 14.6 (17.0 yesterday), platelets 204, sodium 138, potassium 3.8, creatinine 0.97 , troponin 0.106-->.102. Cardiac telemetry reviewed- atrial flutter with 2:1 conduction He is currently on IV heparin infusion and Lopressor 5mg IV BID 2D Echo and doppler study- revealed EF 60-65%, severe left ventricular hypertrophy, mild aortic valve sclerosis, mild mitral regurgitation, mild tricuspid regurgitation, mild pulmonary hypertension PHYSICAL EXAMINATION Blood pressure 142/90 heart rate 85 afebrile and maintaining oxygen saturation on room air. Telemetry reviewed: Atrial fibrillation CONSTITUTIONAL: No apparent distress. HEENT: Head is normocephalic. Pupils are equal, round. Sclerae anicteric. Mucous membranes of the mouth are moist. No JVD. No carotid bruit. CHEST EXAMINATION: Lungs are clear to auscultation. No chest wall tenderness is noted on palpation or with deep breathing. HEART EXAMINATION: Irregular rate and rhythm. S1, S2 heard. No murmurs, gallops or rub. ABDOMEN: Soft, nontender. Positive bowel sounds. EXTREMITIES: 2+ peripheral pulses, no lower extremity edema and no calf tenderness. NEUROLOGIC EXAMINATION: Patient is awake, alert and oriented x1 (to person only) ASSESSMENT Duodenal obstruction Elevated troponin- not acute coronary syndrome. Altered mental status Hypertension Chronic persistent atrial fibrillation on eliquis History of GI bleeding History of dementia PLAN Continue IV heparin infusion for thromboemoblic protection. Continue lopressor to 5mg IV BID scheduled. Further recommendations to follow based on clinical course. Nurse Practitioner note has been reviewed, I agree with a documented findings and plan of care. Patient was seen and examined. Objective - Vital Signs Vital signs: Vital Signs Temp 98 F 07/26/20 08:00 Pulse 85 07/26/20 11:29 Resp 18 07/26/20 11:29 BP 142/90 07/26/20 11:29 Pulse Ox 96 07/26/20 11:29 Intake & Output 07/25/20 07/26/20 07/26/20 18:59 06:59 18:59 Intake Total 50 1920 211.068 Output Total 200 250 Balance -150 1920 -38.932 Weight 72.5 kg Intake: IV 50 Intake, IV Titration 1920 211.068 Amount Heparin Sod,Pork in 0.45% 211.068 NaCl 25,000 unit In 0.45 % NaCl 1 250ml.bag @ 12 UNITS/KG/HR 8.58 mls/hr IV .Q24H [facility] Rx#: [id number] Sodium Chloride 0.9% 1, 1920 000 ml @ 120 mls/hr IV . Q8H20M [facility] Rx#:[id number] Oral 0 Output: Urine 200 250 Other: Voiding Method Urinal # Voids 0 1 1 # Bowel Movements 0 1 - Labs CBC & Chem 7: 07/26/20 06:59 07/26/20 06:59 Labs: Abnormal Lab Results - Last 24 Hours (Table) 07/25/20 07/26/20 Range/Units 19:30 06:59 APTT 50.7 H 57.9 H (22.0-30.0) sec
--- NOTE | 2020-07-26 18:24 | P.PN ---
Subjective Progress Note Date: 07/26/20 CHIEF COMPLAINT: Intractable nausea and vomiting HISTORY OF PRESENT ILLNESS: The patient is a 85 year old male admitted as transfer from [facility] following intractable nausea and vomiting. He had an attempted upper endoscopy with new findings of upper esophageal stenosis. Additional history obtained by his family including medical records. He has memory impairment with dementia. His daughter Caitlyn is at bedside. All questions are being answered. Patient completed a barium swallow. Patient reports having bowel movements and passing flatus which is new. Overall he is improving. REVIEW OF ORGAN SYSTEMS: No chest pain. No shortness of breath. Has chronic cough. PHYSICAL EXAM: VITALS: Reviewed CONSTITUTIONAL: Well developed and in no acute distress. EYES: Conjuctivae without sclera icterus. Extraocular movements grossly intact. HEAD, EARS, NOSE, THROAT: Moist buccal mucosa. Head is atraumatic, normocephalic. No nasal drainage. Hears conversational speech. NECK: Supple. No thyroidomegaly. RESPIRATORY: Non-labored respirations and equal bilateral excursions. No gross wheezes. CARDIOVASCULAR: Irregular rate. Irregular rhythm. ABDOMEN: Soft. No peritonitis. MUSCULOSKELETAL: Nail and fingers with good capillary refill. SKIN: Warm and well perfused with good skin turgor. NEUROLOGIC: Cranial nerves II through XII grossly intact. . No focal or laterali zing signs. PSYCH: Alert and oriented to person. CLINCAL LABS: Reviewed. WBC normal 9.1. STUDIES: Barium swallow independently reviewed. Fndings consistent with high- grade obstruction of the upper esophagus. Some contrast does enter into the esophagus. This is my independent interpretation. CT neck independently reviewed without mass effect along the upper esophagus. This is my independent interpretation. ECHO: Ejection fraction 60-65%. Severe left ventricular hypertrophy. ASSESSMENT: 1. Intractable nausea and vomiting with duodenal obstruction 2. Atrial flutter 3. Chronic anticoagulation 4. Elevated hemoglobin due to dehydration 5. Upper esophageal stenosis PLAN: 1. With ongoing hypertensive upper esophageal sphincter, recommend upper esophageal dilation under general anesthesia to protect airway. 2. In the interim, speech pathology consult advised to identify texture of foods that he may tolerate. 3. Patient may have popsicles which should minimize large swallowing. Objective - Vital Signs Vital signs: Vital Signs Temp 97.4 F L 07/26/20 15:53 Pulse 82 07/26/20 15:53 Resp 18 07/26/20 15:53 BP 162/87 07/26/20 15:53 Pulse Ox 95 07/26/20 15:53 Intake & Output 07/25/20 07/26/20 07/26/20 18:59 06:59 18:59 Intake Total 50 1920 211.068 Output Total 200 250 Balance -150 1920 -38.932 Weight 72.5 kg Intake: IV 50 Intake, IV Titration 1920 211.068 Amount Heparin Sod,Pork in 0.45% 211.068 NaCl 25,000 unit In 0.45 % NaCl 1 250ml.bag @ 12 UNITS/KG/HR 8.58 mls/hr IV .Q24H [facility] Rx#: [id number] Sodium Chloride 0.9% 1, 1920 000 ml @ 120 mls/hr IV . Q8H20M [facility] Rx#:[id number] Oral 0 Output: Urine 200 250 Other: Voiding Method Urinal # Voids 0 1 2 # Bowel Movements 0 1 - Labs CBC & Chem 7: 07/28/20 07:26 07/28/20 07:26 Labs: Abnormal Lab Results - Last 24 Hours (Table) 07/25/20 07/26/20 Range/Units 19:30 06:59 APTT 50.7 H 57.9 H (22.0-30.0) sec Assessment and Plan (1) Intractable nausea and vomiting Status: Acute Code(s): R11.2 - NAUSEA WITH VOMITING, UNSPECIFIED SNOMED Code(s): 911276195 (2) Constipation Status: Acute Code(s): K59.00 - CONSTIPATION, UNSPECIFIED SNOMED Code(s): 65180234 (3) Atrial flutter Status: Acute Code(s): I48.92 - UNSPECIFIED ATRIAL FLUTTER SNOMED Code(s): 3184880 (4) Chronic anticoagulation Status: Acute Code(s): Z79.01 - [employer] (CURRENT) USE OF ANTICOAGULANTS SNOMED Code(s): 279168159 (5) Dementia Status: Acute Code(s): F03.90 - UNSPECIFIED DEMENTIA WITHOUT BEHAVIORAL DISTURBANCE SNOMED Code(s): 23817992 (6) Duodenal obstruction Status: Acute Code(s): K31.5 - OBSTRUCTION OF DUODENUM SNOMED Code(s): 07332816 (7) Esophageal stenosis Status: Acute Code(s): K22.2 - ESOPHAGEAL OBSTRUCTION SNOMED Code(s): 071340028 (8) Upper esophageal web Status: Acute Code(s): Q39.4 - ESOPHAGEAL WEB SNOMED Code(s): 86885020
[2020-07-27] MEDS: DEXTROSE 5%-0.45% NACL 1,000 ML IV SCH ×2 (04:10→16:36)
[2020-07-27 07:39] LABS: Basophils % (A) 0 %; Eosinophils # (A) 0.1 k/uL (0-0.7); Eosinophils % (A) 2 %; HCT 42.6 % (39.0-53.0); HGB 14.4 gm/dL (13.0-17.5); Lymphocytes # (A) 2.5 k/uL (1.0-4.8); Lymphocytes % (A) 29 %; MCH 30.9 pg (25.0-35.0); MCHC 33.8 g/dL (31.0-37.0); MCV 91.4 fL (80.0-100.0); Mean Platelet Volume 7.7; Monocytes % (A) 11 %; Neutrophils # (A) 4.5 k/uL (1.3-7.7); Neutrophils % (A) 54 %; Platelet Count 178 k/uL (150-450); RBC 4.66 m/uL (4.30-5.90); WBC 8.4 k/uL (3.8-10.6)
[2020-07-27 08:02] LABS: African American GFR (CKD) >90 (>60 ml/min/1.73 sqM); Anion Gap 4 mmol/L; Blood Urea Nitrogen 10 mg/dL (9-20); Calcium 8.1 mg/dL (8.4-10.2); Carbon Dioxide 29 mmol/L (22-30); Chloride 103 mmol/L (98-107); Glucose 102 mg/dL (74-99); Non-African American GFR(CKD) 80 (>60 ml/min/1.73 sqM); Potassium 3.3 mmol/L (3.5-5.1); Sodium 136 mmol/L (137-145)
[2020-07-27] MEDS: METOPROLOL TARTRATE 5 MG/5 ML VIAL IVP SCH ×2 (08:40→20:16)
[2020-07-27] MEDS ORDERED: Potassium Replacement Protocol 1 EACH MISC MISCELLANE PRN (10:07)
--- NOTE | 2020-07-27 11:07 | P.PN ---
Subjective Progress Note Date: 07/27/20 Principal diagnosis: Esophageal obstruction Patient is awake and alert today. He is pleasantly confused. He does not recall his discussion with the surgeon or his yesterday. He is feeling well otherwise. He denies any complaints. No acute events overnight. Objective - Vital Signs Vital signs: Vital Signs Temp 97.8 F 07/27/20 08:00 Pulse 92 07/27/20 08:00 Resp 16 07/27/20 08:00 BP 146/88 07/27/20 08:00 Pulse Ox 96 07/27/20 08:00 Intake & Output 07/26/20 07/27/20 07/27/20 18:59 06:59 18:59 Intake Total 211.068 Output Total 250 450 Balance -38.932 -450 Weight 71.5 kg Intake: Intake, IV Titration 211.068 Amount Heparin Sod,Pork in 0.45% 211.068 NaCl 25,000 unit In 0.45 % NaCl 1 250ml.bag @ 12 UNITS/KG/HR 8.58 mls/hr IV .Q24H [facility] Rx#: [id number] Output: Urine 250 450 Other: Voiding Method Urinal Urinal # Voids 2 3 # Bowel Movements 1 - Exam General: The patient is awake and alert, in no distress Eye: there is normal conjunctiva bilaterally. Neck: The neck is supple, there is no JVD. Cardiovascular: Normal S1-S2, no S3-S4, no murmurs. Respiratory: Lungs clear to auscultation bilaterally Gastrointestinal: Abdomen is soft, nontender Musculoskeletal: There is no pedal edema. Neurological:. Speech is normal. Skin: Skin is warm and dry - Labs CBC & Chem 7: 07/27/20 06:40 07/27/20 06:40 Labs: Abnormal Lab Results - Last 24 Hours (Table) 07/27/20 07/27/20 Range/Units 06:40 06:40 APTT 58.6 H (22.0-30.0) sec Sodium 136 L (137-145) mmol/L Potassium 3.3 L (3.5-5.1) mmol/L Glucose 102 H (74-99) mg/dL Calcium 8.1 L (8.4-10.2) mg/dL Assessment and Plan Assessment: This is a 85-year-old male with complex past medical history noted below significant for underlying dementia who was transferred from [facility] to 2 suspected bowel obstruction. Patient was evaluated in the ER and currently admitted to the hospital for further management of his medical problems noted below. 1. Esophageal and Duodenal obstruction: Patient was seen and evaluated by general surgery. Plan for esophageal dilation under general anesthesia tomorrow. Attempted EGD on presentation was aborted secondary to esophageal obstruction. Computed tomography scan of the abdomen and pelvis at the outside hospital shows significant distention of the stomach and first, second, and third portion of the duodenal along with retroperitoneal adenopathy. Patient underwent barium esophagogram showing evidence of large amount aspiration with barium extending down into the right lower lobe. Speech pathology consulted for further evaluation. No evidence of Zenker's diverticulum 2. Troponin elevation, most likely non-thrombotic troponin leak secondary to rapid ventricular response on presentation. Patient denies any chest pain. 12- lead EKG showed no acute ischemic changes. Troponin peaked at 0.1 Cardiology consulted for further evaluation. I ordered echocardiogram 3. Underlying dementia. Patient daughter Sarah Phone #[phone] 4. Chronic medical problems A. fib on anticoagulation with Eliquis (currently on IV heparin per cardiology), hypertension, Continue nothing by mouth for now No oral medication at this time IV metoprolol twice a day Awaiting speech pathology evaluation May consider TPN within the next couple of days if prolonged nothing by mouth status continues IV fluid to D5/half-normal saline at 75 mL per hour
[2020-07-27] MEDS: POTASSIUM CHLORIDE 10 MEQ in WATER FOR INJECTION 1 100ML.BAG IVPB SCH ×4 (12:02→15:28)
[2020-07-27] MEDS: HEPARIN SOD,PORK IN 0.45% NACL 25,000 UNIT in 0.45% NACL 1 250ML.BAG IV SCH (14:26)
--- NOTE | 2020-07-27 14:33 | P.PN ---
Subjective This is a pleasant 85-year-old male past medical history significant for chronic persistent atrial fibrillation on long-term anticoagulation and hypertension. He follows in the office with Dr. Valles. We have been asked to see in consultation for elevated troponin and atrial flutter on admission. Was transferred here from [facility] emergency department. He apparently has been suffering with constipation for the previous one week. He has been following as an outpatient with Dr. Juani Reynoso due to this. He was also having naus ea/vomiting. He underwent a computed tomography scan consistent with duodenal obstruction. He has been evaluated by Dr. Regalado who took the patient for an EGD this morning and was unsuccessful at passing the probe due to suspected esophageal obstruction. She has requested ENT evaluation and CT of the chest/neck. CT chest/neck revealed dilated fluid-filled stomach could be related to gastric outlet obstruction. Patient underwent barium swallow on 07/26 which showed large amount of jack aspiration with barium extending down into the right lower lobe. Speech pathology to see patient. 07/27/20 He is lying in bed, comfortable with no symptoms of chest pain, shortness of breath, dizziness or palpitations. He is conversing appropriately however is extremely confused, alert and oriented to person, able to tell me he is at the hospital- but unable to recall which hospital he is in. Unaware of year or month. He is unable to verbalize why he came to the hospital. Laboratory reviewed, WBC 8.4, hemoglobin 14.4, platelets 178, sodium 136, potassium 3.3, creatinine 0.84. He is currently on IV heparin infusion and Lopressor 5mg IV BID 07/26/20: 2D Echo and doppler study- revealed EF 60-65%, severe left ventricular hypertrophy, mild aortic valve sclerosis, mild mitral regurgitation, mild tricuspid regurgitation, mild pulmonary hypertension PHYSICAL EXAMINATION Blood pressure 146/88 heart rate 92 afebrile and maintaining oxygen saturation on room air. Telemetry reviewed: Atrial flutter with 2:1 AV conduction. 70s-118. CONSTITUTIONAL: No apparent distress. HEENT: Head is normocephalic. Pupils are equal, round. Sclerae anicteric. Mucous membranes of the mouth are moist. No JVD. No carotid bruit. CHEST EXAMINATION: Lungs are clear to auscultation. No chest wall tenderness is noted on palpation or with deep breathing. HEART EXAMINATION: Irregular rate and rhythm. S1, S2 heard. No murmurs, gallops or rub. ABDOMEN: Soft, nontender. Hyperactive bowel sounds. EXTREMITIES: 2+ peripheral pulses, no lower extremity edema and no calf tenderness. SKIN: intact, no rashes, no wounds NEUROLOGIC EXAMINATION: Patient is awake, alert and oriented to person, knows he is in the hospital today. ASSESSMENT Duodenal obstruction Elevated troponin- troponins peaked at 0.106 and downtrended to 0.102 not acute coronary syndrome. Altered mental status Hypertension Chronic persistent atrial fibrillation on eliquis History of GI bleeding History of dementia PLAN Continue IV heparin infusion for thromboemoblic protection. Continue lopressor to 5mg IV BID scheduled. Continue to monitor BMP and electrolytes Further recommendations to follow based on clinical course. Nurse Practitioner note has been reviewed, I agree with a documented findings and plan of care. Patient was seen and examined. Objective - Vital Signs Vital signs: Vital Signs Temp 97.8 F 07/27/20 11:21 Pulse 87 07/27/20 11:21 Resp 15 07/27/20 11:21 BP 119/89 07/27/20 11:21 Pulse Ox 96 07/27/20 11:21 Intake & Output 07/26/20 07/27/20 07/27/20 18:59 06:59 18:59 Intake Total 211.068 Output Total 250 450 Balance -38.932 -450 Weight 71.5 kg Intake: Intake, IV Titration 211.068 Amount Heparin Sod,Pork in 0.45% 211.068 NaCl 25,000 unit In 0.45 % NaCl 1 250ml.bag @ 12 UNITS/KG/HR 8.58 mls/hr IV .Q24H [facility] Rx#: [id number] Output: Urine 250 450 Other: Voiding Method Urinal Urinal # Voids 2 3 # Bowel Movements 1 - Labs CBC & Chem 7: 07/27/20 06:40 07/27/20 06:40 Labs: Abnormal Lab Results - Last 24 Hours (Table) 07/27/20 07/27/20 Range/Units 06:40 06:40 APTT 58.6 H (22.0-30.0) sec Sodium 136 L (137-145) mmol/L Potassium 3.3 L (3.5-5.1) mmol/L Glucose 102 H (74-99) mg/dL Calcium 8.1 L (8.4-10.2) mg/dL
--- NOTE | 2020-07-27 14:46 | P.PN ---
<Christina Umanzor - Last Filed: 07/27/20 14:26> Subjective Progress Note Date: 07/27/20 CHIEF COMPLAINT: Esophageal obstruction HISTORY OF PRESENT ILLNESS: Surgical service is following in regards to patient's esophageal obstruction. Patient is pleasantly confused. He denies any pain. Patient has no new complaints. Patient is currently nothing by mouth except for ice chips and popsicles. He is afebrile. WBC 8.4 Hgb 14.4 potassium 3.3 and being replaced. Elevated troponin patient being evaluated by cardiology. Patient to be evaluated by speech therapy today PHYSICAL EXAM: VITAL SIGNS: Reviewed GENERAL: Well-developed in no acute distress. HEENT: No sclera icterus. Extraocular movements grossly intact. Moist buccal mucosa. Head is atraumatic, normocephalic. Hears conversational speech. No nasal drai nage. NECK: Supple without lymphadenopathy. CHEST: Non-labored respirations and equal bilateral excursions. CARDIOVASCULAR: Palpable 2+ radial pulses. ABDOMEN: Soft. Nondistended. Nontender. MUSCULOSKELETAL: No clubbing or cyanosis. NEUROLOGIC: No focal or lateralizing signs. Cranial nerves II through XII grossly intact. PSYCH: Appropriate affect. Patient is pleasantly confused SKIN: Well perfused. Good skin turgor. ASSESSMENT: 1. Esophageal obstruction 2. Hypokalemia being replaced 3. Dementia 4. Elevated troponin evaluated by cardiology and felt not to be an acute coronary syndrome 5. History of chronic persistent atrial fibrillation PLAN: -Patient is scheduled for EGD with rigid dilation under general tomorrow, 07/28/[address] Regalado Physician Asphalt Spreader Operator note has been reviewed by physician. Signing provider agrees with the documented findings, assessment, and plan of care. Objective - Vital Signs Vital signs: Vital Signs Temp 97.8 F 07/27/20 11:21 Pulse 87 07/27/20 11:21 Resp 15 07/27/20 11:21 BP 119/89 07/27/20 11:21 Pulse Ox 96 07/27/20 11:21 Intake & Output 07/26/20 07/27/20 07/27/20 18:59 06:59 18:59 Intake Total 211.068 Output Total 250 450 Balance -38.932 -450 Weight 71.5 kg Intake: Intake, IV Titration 211.068 Amount Heparin Sod,Pork in 0.45% 211.068 NaCl 25,000 unit In 0.45 % NaCl 1 250ml.bag @ 12 UNITS/KG/HR 8.58 mls/hr IV .Q24H [facility] Rx#: [id number] Output: Urine 250 450 Other: Voiding Method Urinal Urinal # Voids 2 3 # Bowel Movements 1 - Labs CBC & Chem 7: 07/27/20 06:40 07/27/20 06:40 Labs: Abnormal Lab Results - Last 24 Hours (Table) 07/27/20 07/27/20 Range/Units 06:40 06:40 APTT 58.6 H (22.0-30.0) sec Sodium 136 L (137-145) mmol/L Potassium 3.3 L (3.5-5.1) mmol/L Glucose 102 H (74-99) mg/dL Calcium 8.1 L (8.4-10.2) mg/dL <Dana Regalado N - Last Filed: 08/28/20 15:57> Subjective As above. Please see additional documentation below. CHIEF COMPLAINT: Intractable nausea and vomiting HISTORY OF PRESENT ILLNESS: The patient is a 85 year old male admitted as transfer from [facility] following intractable nausea and vomiting. Additional workup demonstrated upper esophageal stenosis via previous upper endoscopy. 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 He has been nothing by mouth. REVIEW OF ORGAN SYSTEMS: No chest pain. No shortness of breath. Has chronic cough. PHYSICAL EXAM: VITALS: Reviewed CONSTITUTIONAL: Well developed and in no acute distress. EYES: Conjuctivae without sclera icterus. Extraocular movements grossly intact. HEAD, EARS, NOSE, THROAT: Moist buccal mucosa. Head is atraumatic, normocephalic. No nasal drainage. Hears conversational speech. NECK: Supple. No thyroidomegaly. RESPIRATORY: Non-labored respirations and equal bilateral excursions. No gross wheezes. CARDIOVASCULAR: Irregular rate. Irregular rhythm. ABDOMEN: Soft. No peritonitis. MUSCULOSKELETAL: Nail and fingers with good capillary refill. SKIN: Warm and well perfused with good skin turgor. NEUROLOGIC: Cranial nerves II through XII grossly intact. . No focal or lateralizing signs. PSYCH: Alert and oriented to person. CLINCAL LABS: Reviewed. WBC normal 9.1 now 8.4. Cancer marker CEA level normal. ASSESSMENT: 1. Intractable nausea and vomiting with duodenal obstruction 2. Atrial flutter 3. Chronic anticoagulation 4. Elevated hemoglobin due to dehydration 5. Upper esophageal stenosis PLAN: 1. Will proceed with upper endoscopy with serial dilation. 2. Patient is elevated risk for complications due to chronic anticoagulation for atrial fibrillation 3. Risks for transfer described should upper endoscopy be unsuccessful for dilation of the upper esophagus. Objective - Vital Signs Vital signs: Vital Signs Temp 97.9 F 07/29/20 08:00 Pulse 88 07/29/20 08:00 Resp 16 07/29/20 08:00 BP 137/74 07/29/20 08:00 Pulse Ox 98 07/29/20 08:00 - Labs CBC & Chem 7: 07/28/20 07:26 07/28/20 07:26 Assessment and Plan (1) Intractable nausea and vomiting Status: Acute Code(s): R11.2 - NAUSEA WITH VOMITING, UNSPECIFIED SNOMED Code(s): 530398533 (2) Constipation Status: Acute Code(s): K59.00 - CONSTIPATION, UNSPECIFIED SNOMED Code(s): 71362278 (3) Atrial flutter Status: Acute Code(s): I48.92 - UNSPECIFIED ATRIAL FLUTTER SNOMED Code(s): 8797821 (4) Chronic anticoagulation Status: Acute Code(s): Z79.01 - MUSICAL INSTRUMENTS ASSEMBLER (CURRENT) USE OF ANTICOAGULANTS SNOMED Code(s): 354448191 (5) Dementia Status: Acute Code(s): F03.90 - UNSPECIFIED DEMENTIA WITHOUT BEHAVIORAL D ISTURBANCE SNOMED Code(s): 70554979 (6) Duodenal obstruction Status: Acute Code(s): K31.5 - OBSTRUCTION OF DUODENUM SNOMED Code(s): 40523941 (7) Esophageal stenosis Status: Acute Code(s): K22.2 - ESOPHAGEAL OBSTRUCTION SNOMED Code(s): 409222658 (8) Upper esophageal web Status: Acute Code(s): Q39.4 - ESOPHAGEAL WEB SNOMED Code(s): 87237914
--- NOTE | 2020-07-27 19:40 | P.PN ---
Subjective Progress Note Date: 07/27/20 Principal diagnosis: Dysphagia Surgery evaluated further and have Patient scheduled for EGD with rigid dilation under general tomorrow, 07/28/[address] Regalado Objective - Vital Signs Vital signs: Vital Signs Temp 97.2 F L 07/27/20 16:00 Pulse 93 07/27/20 16:00 Resp 16 07/27/20 16:00 BP 140/77 07/27/20 16:00 Pulse Ox 97 07/27/20 16:00 Intake & Output 07/27/20 07/27/20 07/28/20 06:59 18:59 06:59 Intake Total 214.357 Output Total 950 Balance -735.643 Weight 71.5 kg Intake: Intake, IV Titration 214.357 Amount Heparin Sod,Pork in 0.45% 214.357 NaCl 25,000 unit In 0.45 % NaCl 1 250ml.bag @ 12 UNITS/KG/HR 8.58 mls/hr IV .Q24H [facility] Rx#: [id number] Output: Urine 950 Other: Voiding Method Urinal Urinal # Voids 3 # Bowel Movements 1 1 - Exam - Constitutional General appearance: cooperative, no acute distress - EENT Eyes: EOMI ENT: hard of hearing, NA/AT - Respiratory Respiratory: bilateral: diminished - Cardiovascular Rhythm: irregularly irregular - Gastrointestinal General gastrointestinal: decreased bowel sounds - Integumentary Integumentary: pale - Neurologic unable - Musculoskeletal Musculoskeletal: generalized weakness - Psychiatric dementia poor historian - Labs CBC & Chem 7: 07/27/20 06:40 07/27/20 06:40 Labs: Abnormal Lab Results - Last 24 Hours (Table) 07/27/20 07/27/20 Range/Units 06:40 06:40 APTT 58.6 H (22.0-30.0) sec Sodium 136 L (137-145) mmol/L Potassium 3.3 L (3.5-5.1) mmol/L Glucose 102 H (74-99) mg/dL Calcium 8.1 L (8.4-10.2) mg/dL Assessment and Plan (1) Atrial flutter Current Visit: Yes Status: Acute Code(s): I48.92 - UNSPECIFIED ATRIAL FLUTTER SNOMED Code(s): 3084117 (2) Chronic anticoagulation Current Visit: Yes Status: Acute Code(s): Z79.01 - PENITENTIARY (CURRENT) USE OF ANTICOAGULANTS SNOMED Code(s): 482592994 (3) Dementia Current Visit: Yes Status: Acute Code(s): F03.90 - UNSPECIFIED DEMENTIA WITHOUT BEHAVIORAL DISTURBANCE SNOMED Code(s): 20742451 (4) Duodenal obstruction Current Visit: Yes Status: Acute Code(s): K31.5 - OBSTRUCTION OF DUODENUM SNOMED Code(s): 32917545 (5) Intractable nausea and vomiting Current Visit: Yes Status: Acute Code(s): R11.2 - NAUSEA WITH VOMITING, UNSPECIFIED SNOMED Code(s): 376322258 Plan: Esophageal obstruction Hypokalemia replaced per primary team Dementia No elevation in CEA Plan for EGD with dilation under asthesia per surgery tomorrow 07/28/20 Await results
[2020-07-28] MEDS: DEXTROSE 5%-0.45% NACL 1,000 ML IV SCH ×2 (06:04→14:10)
[2020-07-28 07:46] LABS: Basophils % (A) 0 %; Eosinophils # (A) 0.3 k/uL (0-0.7); Eosinophils % (A) 3 %; HCT 45.2 % (39.0-53.0); HGB 15.4 gm/dL (13.0-17.5); Lymphocytes # (A) 2.1 k/uL (1.0-4.8); Lymphocytes % (A) 27 %; MCH 31.2 pg (25.0-35.0); MCV 91.8 fL (80.0-100.0); Mean Platelet Volume 7.7; Monocytes # (A) 0.8 k/uL (0-1.0); Monocytes % (A) 10 %; Neutrophils # (A) 4.5 k/uL (1.3-7.7); Neutrophils % (A) 56 %; Platelet Count 189 k/uL (150-450); RBC 4.92 m/uL (4.30-5.90)
[2020-07-28] MEDS: METOPROLOL TARTRATE 5 MG/5 ML VIAL IVP SCH (08:34)
[2020-07-28 08:40] LABS: African American GFR (CKD) >90 (>60 ml/min/1.73 sqM); Anion Gap 4 mmol/L; Blood Urea Nitrogen 6 mg/dL (9-20); Calcium 8.5 mg/dL (8.4-10.2); Carbon Dioxide 30 mmol/L (22-30); Chloride 101 mmol/L (98-107); Glucose 125 mg/dL (74-99); Non-African American GFR(CKD) 79 (>60 ml/min/1.73 sqM); Potassium 3.6 mmol/L (3.5-5.1); Sodium 135 mmol/L (137-145)
[2020-07-28] MEDS ORDERED: IV FLUID CONTINUATION 1,000 ML IV ONE (11:17)
[2020-07-28] MEDS ORDERED: LIDOCAINE 1% INJ 10MG/ML (20 ML MDV) ONE (11:20)
[2020-07-28] MEDS ORDERED: PROPOFOL 10 MG/ML 20 ML VIAL IV ONE (11:20)
[2020-07-28] MEDS ORDERED: SUCCINYLCHOLINE CHLORIDE 100 MG/5 ML SYR IV ONE (11:20)
[2020-07-28] MEDS ORDERED: PHENYLEPHRINE-0.9% NACL SYG 1,000 MCG/10 ML SYRINGE ONE (11:20)
[2020-07-28] MEDS: HEPARIN SOD,PORK IN 0.45% NACL 25,000 UNIT in 0.45% NACL 1 250ML.BAG IV SCH (11:43)
--- NOTE | 2020-07-28 12:23 | P.PCN ---
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 SURGEON: Dana Regalado MD ANESTHESIA: GETA. INDICATIONS: The patient is a 85-year-old male who presents with a history of dysphagia, unintentional weight loss, severe stenosis of the upper esophageal sphincter. Initial previous upper endoscopy was unsuccessful. Initial diagnostic studies were performed. Therapeutic upper endoscopy with dilation was described however under general anesthetic. Benefits and risks of the procedure were described. Informed consent was obtained. DESCRIPTION: The patient was brought into the endoscopy suite and laid in the left lateral decubitus position. After a timeout was confirmed, the procedure was initiated. An Olympus gastroscope was passed into the posterior oropharynx where a [employer] duodenal balloon with guidewire was carefully passed beyond the upper esophageal stenosis. Initial balloon dilation from 8 mm to 9 mm was performed with moderate resistance along the upper esophageal stenosis. Next, the [employer] balloon and guidewire were educational program assistant was removed. A flexible guidewire for rigid dilators placed. Serial dilation from 8 mm, 10 mm, 12-mm, 14-mm, 16 mm was performed to 51-[place]. Each stepwise dilation occurred for 2 minutes. No bleeding had occurred. The guidewire was removed. The Olympus gastroscope was successfully passed beyond the upper esophageal s tricture into the stomach past the third to fourth portion of duodenum. No masses or malignancy was identified throughout the upper GI tract. No mucosal tear was found along the upper esophageal sphincter dilation. A small sliding hiatal hernia less than 3 cm were identified. Mild gastritis was identified. Retroflexion the scope confirmed a Hill grade 2 lower esophageal valve. No full-thickness injury was encountered. The GI tract was desufflated. The patient tolerated the procedure well. FINDINGS: A severe stenosis of upper esophageal sphincter requiring serial dilation from 8 mm to 51-Northern Irish. Squamocolumnar junction unremarkable at 37 cm. Diaphragmatic hiatal hernia 3 cm. Mild gastritis Hill grade 2 lower esophageal valve. LA grade B esophagitis. No lesions or malignancy identified within the upper GI tract RECOMMENDATIONS: Recommend upper endoscopy with future rigid dilation in 4-6 weeks Start dysphagia ground diet with advancement as tolerated
[2020-07-28] MEDS: APIXABAN 2.5 MG TABLET PO SCH ×2 (14:05→19:39)
--- NOTE | 2020-07-28 14:24 | P.PN ---
Subjective This is a pleasant 85-year-old male past medical history significant for long standing persistent atrial fibrillation on long-term anticoagulation and hypertension. He follows in the office with Dr. Valles. We have been asked to see in consultation for elevated troponin and atrial flutter on admission. Was transferred here from [facility] emergency department. He apparently has been suffering with constipation for the previous one week. He has been following as an outpatient with Dr. Juani Reynoso due to this. He was also having nausea/vomiting. He underwent a computed tomography scan consistent with duodenal obstruction. He has been evaluated by Dr. Regalado who took the patient for an EGD this morning and was unsuccessful at passing the probe due to suspected esophageal obstruction. She has requested ENT evaluation and CT of the chest/neck. CT chest/neck revealed dilated fluid-filled stomach could be related to gastric outlet obstruction. Patient underwent barium swallow on 07/26 which showed large amount of jack aspiration with barium extending down into the right lower lobe. Speech pathology to see patient. 07/26/20: 2D Echo and doppler study- revealed EF 60-65%, severe left ventricular hypertrophy, mild aortic valve sclerosis, mild mitral regurgitation, mild tricuspid regurgitation, mild pulmonary hypertension 07/28/20 Patient seen this morning, walking in halls. alert and oriented x 1-2, occasionally knows he is in the hospital. Plan for EGD with dilation today with Dr. Regalado Patient denies symptoms of chest pain, shortness of breath, dizziness or palpitations. He is conversing appropriately, continues to be confused. Laboratory reviewed, WBC 8.0, hemoglobin 15.4, platelets 189, sodium 135, potassium 3.6, creatinine 0.87, magnesium 1.7. This morning heparin infusion was on hold due to procedure. He is receiving Lopressor 5mg IV BID. PHYSICAL EXAMINATION Blood pressure 131/92 heart rate 110 afebrile and maintaining oxygen saturation on room air. Telemetry reviewed: Patient appears to still be in atrial flutter HR 80s-90s CONSTITUTIONAL: No apparent distress. HEENT: Head is normocephalic. Pupils are equal, round. Sclerae anicteric. Mucous membranes of the mouth are moist. No JVD. No carotid bruit. CHEST EXAMINATION: Lungs are clear to auscultation. No chest wall tenderness is noted on palpation or with deep breathing. HEART EXAMINATION: Irregular rate and rhythm. S1, S2 heard. No murmurs, gallops or rub. ABDOMEN: Soft, nontender. Hyperactive bowel sounds. EXTREMITIES: 2+ peripheral pulses, no lower extremity edema and no calf tenderness. SKIN: intact, no rashes, no wounds NEUROLOGIC EXAMINATION: Patient is awake, alert and oriented to person, knows he is in the hospital today. ASSESSMENT Duodenal obstruction Elevated troponin- troponins peaked at 0.106 and downtrended to 0.102 not acute coronary syndrome. Altered mental status Hypertension Chronic persistent atrial fibrillation on eliquis Typical Atrial flutter History of GI bleeding History of dementia PLAN -Patient able to start mechanical soft diet this afternoon after EGD with dilation -Will discontinue heparin drip and IV lopressor and restart home medications: lisinopril 40mg daily, amlodipine 2.5mg daily, metoprolol tartrate 50mg BID, Eliquis 2.5mg BID (Dr. Valles decreased Elquis to 2.5mg outpatient because patient was having dark stools) -Continue to monitor BMP and electrolytes -Further recommendations to follow based on clinical course. Nurse Practitioner note has been reviewed, I agree with a documented findings and plan of care. Patient was seen and examined. Objective - Vital Signs Vital signs: Vital Signs Temp 97.3 F L 07/28/20 12:13 Pulse 80 07/28/20 13:30 Resp 16 07/28/20 13:30 BP 183/95 07/28/20 13:30 Pulse Ox 95 07/28/20 13:15 Intake & Output 07/27/20 07/28/20 07/28/20 18:59 06:59 18:59 Intake Total 214.357 375.012 Output Total 950 450 Balance -735.643 -74.988 Weight 69.7 kg Intake: IV 220 Intake, IV Titration 214.357 155.012 Amount Heparin Sod,Pork in 0.45% 214.357 155.012 NaCl 25,000 unit In 0.45 % NaCl 1 250ml.bag @ 12 UNITS/KG/HR 8.58 mls/hr IV .Q24H [facility] Rx#: [id number] Output: Urine 950 450 Other: Voiding Method Urinal # Voids 3 # Bowel Movements 1 - Labs CBC & Chem 7: 07/28/20 07:26 07/28/20 07:26 Labs: Abnormal Lab Results - Last 24 Hours (Table) 07/28/20 07/28/20 Range/Units 07:26 07:26 APTT 51.9 H (22.0-30.0) sec Sodium 135 L (137-145) mmol/L BUN 6 L (9-20) mg/dL Glucose 125 H (74-99) mg/dL
[2020-07-28] MEDS ORDERED: BENZOCAINE SPRAY 1 CAN MUCOUS MEM PRN (15:49)
--- NOTE | 2020-07-28 17:10 | P.PN ---
<Ancelmo Medel - Last Filed: 07/28/20 16:51> Subjective Progress Note Date: 07/28/20 Principal diagnosis: Esophageal obstruction, duodenal obstruction Hospital course: Patient is an 85-year-old male who was transferred from [facility] secondary to concerns of a suspected bowel obstruction with CT abdomen and pelvis reportedly revealing significant distention of the stomach and first, second, and third portion of the duodenal along with retroperitoneal adenopathy. Patient underwent a barium esophagram which revealed evidence of large amount of aspiration with barium extending down into the right lower lobe. Physical exam: Patient was seen and fully evaluated at the bedside this morning. He is awaiting to go down for an EGD with plans for esophageal dilation. He denies having any complaints or concerns at this time including headache, lightheadedness, dizziness, changes in vision or hearing, chest pain or palpitations, shortness of breath, abdominal pain, nausea, or vomiting. Patient reports that he has been having bowel movements and passing gas. Patient reports last bowel movement was yesterday evening. General: non toxic, no distress, appears at stated age Derm: warm, dry Head: atraumatic, normocephalic, symmetric Eyes: EOMI, no lid lag, anicteric sclera Mouth: No lip lesion, mucus membranes dry. Missing teeth. Cardiovascular: S1S2 reg, no murmur, positive posterior tibial pulses bilaterally, cap refill less than 2 seconds. Lungs: Respirations even, regular, and unlabored on room air. Lungs CTA bilaterally, no rhonchi, no rales, no wheezing and no accessory muscle use Abdominal: soft, nontender to palpation, no guarding, no appreciable organomegaly Ext: No gross muscle atrophy, no edema, no contractures Neuro: CN II-XI grossly intact, no focal neuro deficits Psych: Alert, oriented, appropriate affect Plan of care: Esophageal and duodenal obstruction -Gen. surgery following. -Patient scheduled for EGD with plans for esophageal dilation later today. -Nothing by mouth until cleared by general surgery. -Aspiration precautions. -Speech and language pathology following, and appreciate further recommendations. -Continue with IV hydration. Elevated troponin, likely nontraumatic troponin leak secondary to atrial fibrillation with episode of rapid ventricular response. -Troponins peaked at 0.106 and down trended to 0.102. -EKG revealed atrial flutter with RVR at 120 bpm. -Echocardiogram revealed normal ejection fraction of 60-65% with severe left ventricular hypertrophy and no significant valvular disease. -Cardiology following, ruled out acute coronary syndrome. -Continue heparin infusion per cardiology, currently heparin infusion on hold while awaiting EGD with plans for esophageal dilation. Atrial fibrillation -Continue IV heparin per cardiology. Currently on heparin infusion on hold for planned EGD. Hypertension -Monitor vital signs and continue daily medication management with Norvasc, lisinopril and metoprolol tartrate. CODE STATUS: Full code DVT prophylaxis: Heparin Discussed with: Patient, , and daughter Anticipated discharge date: 1-[address]: Home with homecare A total of 45 minutes was spent on the care of this complex patient more than 50% of the time was spent in counseling and care coordination. Objective - Vital Signs Vital signs: Vital Signs Temp 97.3 F L 07/28/20 12:13 Pulse 80 07/28/20 13:30 Resp 16 07/28/20 13:30 BP 183/95 07/28/20 13:30 Pulse Ox 95 07/28/20 13:15 Intake & Output 07/27/20 07/28/20 07/28/20 18:59 06:59 18:59 Intake Total 214.357 375.012 Output Total 950 450 Balance -735.643 -74.988 Weight 69.7 kg Intake: IV 220 Intake, IV Titration 214.357 155.012 Amount Heparin Sod,Pork in 0.45% 214.357 155.012 NaCl 25,000 unit In 0.45 % NaCl 1 250ml.bag @ 12 UNITS/KG/HR 8.58 mls/hr IV .Q24H [facility] Rx#: [id number] Output: Urine 950 450 Other: Voiding Method Urinal # Voids 3 # Bowel Movements 1 - Labs CBC & Chem 7: 07/28/20 07:26 07/28/20 07:26 Labs: Abnormal Lab Results - Last 24 Hours (Table) 07/28/20 07/28/20 Range/Units 07:26 07:26 APTT 51.9 H (22.0-30.0) sec Sodium 135 L (137-145) mmol/L BUN 6 L (9-20) mg/dL Glucose 125 H (74-99) mg/dL <Mariely Salcido - Last Filed: 07/29/20 06:21> Objective - Vital Signs Vital signs: Vital Signs Temp 97.9 F 07/28/20 23:00 Pulse 76 07/29/20 03:01 Resp 16 07/29/20 03:01 BP 129/76 07/28/20 23:00 Pulse Ox 96 07/28/20 23:00 Intake & Output 07/28/20 07/28/20 07/29/20 06:59 18:59 06:59 Intake Total 1100.012 Output Total 850 150 Balance 250.012 -150 Weight 69.7 kg Intake: IV 820 Dextrose 5%-0.45% NaCl 1, 600 000 ml @ 75 mls/hr IV . [id number] [facility] Rx#:[id number] Intake, IV Titration 155.012 Amount Heparin Sod,Pork in 0.45% 155.012 NaCl 25,000 unit In 0.45 % NaCl 1 250ml.bag @ 12 UNITS/KG/HR 8.58 mls/hr IV .Q24H [facility] Rx#: [id number] Oral 125 Output: Urine 850 150 Other: # Voids 3 1 # Bowel Movements 1 - Labs CBC & Chem 7: 07/28/20 07:26 07/28/20 07:26 Labs: Abnormal Lab Results - Last 24 Hours (Table) 07/28/20 07/28/20 Range/Units 07:26 07:26 APTT 51.9 H (22.0-30.0) sec Sodium 135 L (137-145) mmol/L BUN 6 L (9-20) mg/dL Glucose 125 H (74-99) mg/dL Assessment and Plan Assessment: Patient seen and examined independently. Patient was also seen by Ancelmo Medel NP and case was discussed. I am in agreement with subjective, physical exam, assessment and plan as written above and amended below. Patient seen and examined at bedside with family present on 07/28 at 1345. He denies any overt chest pain, shortness of breath, no nausea or vomiting currently. General: non toxic, no distress, appears at stated age Derm: warm, dry Head: atraumatic, normocephalic, symmetric Eyes: EOMI, no lid lag, anicteric sclera Mouth: no lip lesion, mucus membranes moist Cardiovascular: S1S2 reg, no murmur, positive posterior tibial pulse bilateral, Lungs: CTA bilateral, no rhonchi, no rales , no accessory muscle use Abdominal: soft, nontender to palpation, no guarding, no appreciable organomegaly Psych: Alert, oriented, appropriate affect Atrial fibrillation -Resume Eliquis -Cardiology recommendations Esophageal stricture status post dilatation -General surgery recommendations appreciated: Outpatient follow-up in 4-6 weeks -Patient family report that Dr. Dawkins suggested colonoscopy in 1 week and outpatient basis.
--- NOTE | 2020-07-28 18:48 | P.PN ---
Progress Note - Text Progress Note Date: 07/28/20 He tolerated grounded diet. Clinically doing well. Dysphagia resolved. We'll advance to regular diet. Patient having bowel movement. Patient stable from surgical standpoint for discharge with follow-up as outpatient.
[2020-07-28] MEDS: METOPROLOL TARTRATE 50 MG TAB PO SCH (19:39)
[2020-07-28 20:58] VITALS: RESP 16
[2020-07-28] MEDS ORDERED: lisinopriL 20 MG TAB PO SCH (21:00)
[2020-07-28] MEDS ORDERED: amLODIPine 2.5 MG TAB PO SCH (21:00)
[2020-07-28] MEDS ORDERED: HALOPERIDOL LACTATE 5 MG/ML 1 ML VIAL IM STA (23:24)
[2020-07-29 00:29] VITALS: TEMP 97.9
[2020-07-29] MEDS: DEXTROSE 5%-0.45% NACL 1,000 ML IV SCH (06:39)
[2020-07-29 08:57] VITALS: BP 137/74; PULSE 88
[2020-07-29] MEDS: METOPROLOL TARTRATE 50 MG TAB PO SCH (08:57)
[2020-07-29] MEDS: APIXABAN 2.5 MG TABLET PO SCH (08:57)
--- NOTE | 2020-07-29 14:32 | P.PN ---
Subjective Progress Note Date: 07/29/20 CHIEF COMPLAINT: Intractable nausea and vomiting HISTORY OF PRESENT ILLNESS: The patient is a 85 year old male admitted as transfer from outside hospital due to intractable nausea and vomiting including abdominal pain. He had attempted initial upper endoscopy unsuccessful. Additional diagnostic studies were performed. He has completed repeat upper endoscopy with serial dilation. Heis doing very well today. He is tolerating a regular diet. Daughter is at bedside. He is having bowel movements. Per daughter, the patient had his last colonoscopy 2017. REVIEW OF ORGAN SYSTEMS: No chest pain. No shortness of breath. Having bowel movements. No blood in stools. PHYSICAL EXAM: VITALS: Reviewed CONSTITUTIONAL: Well developed and in no acute distress. EYES: Conjuctivae without sclera icterus. Extraocular movements grossly intact. HEAD, EARS, NOSE, THROAT: Moist buccal mucosa. Head is atraumatic, normocephalic. No nasal drainage. Hears conversational speech. NECK: Supple. No thyroidomegaly. RESPIRATORY: Non-labored respirations and equal bilateral excursions. No gross wheezes. CARDIOVASCULAR: Irregular rate. Irregular rhythm. ABDOMEN: Soft. No peritonitis. MUSCULOSKELETAL: Nail and fingers with good capillary refill. SKIN: Warm and well perfused with good skin turgor. NEUROLOGIC: Cranial nerves II through XII grossly intact. No focal or lateralizing signs. PSYCH: Alert and oriented to person. CLINCAL LABS: Reviewed. WBC normal 8.0 ASSESSMENT: 1. Intractable nausea and vomiting with duodenal obstruction 2. Atrial flutter 3. Chronic anticoagulation 4. Elevated hemoglobin due to dehydration 5. Upper esophageal stenosis PLAN: 1. He status post dilation and is doing well. 2. Recommend follow-up in 1 week. 3. Stable for discharge. Objective - Vital Signs Vital signs: Vital Signs Temp 97.9 F 07/29/20 08:00 Pulse 88 07/29/20 08:00 Resp 16 07/29/20 08:00 BP 137/74 07/29/20 08:00 Pulse Ox 98 07/29/20 08:00 Intake & Output 07/28/20 07/29/20 07/29/20 18:59 06:59 18:59 Intake Total 1100.012 240 Output Total 850 150 Balance 250.012 -150 240 Intake: IV 820 Dextrose 5%-0.45% NaCl 1, 600 000 ml @ 75 mls/hr IV . [id number] DOMINIQUE Rx#:[id number] Intake, IV Titration 155.012 Amount Heparin Sod,Pork in 0.45% 155.012 NaCl 25,000 unit In 0.45 % NaCl 1 250ml.bag @ 12 UNITS/KG/HR 8.58 mls/hr IV .Q24H DOMINIQUE Rx#: [id number] Oral 125 240 Output: Urine 850 150 Other: # Voids 1 2 # Bowel Movements 1 - Labs CBC & Chem 7: 07/28/20 07:26 07/28/20 07:26 Assessment and Plan (1) Intractable nausea and vomiting Status: Acute Code(s): R11.2 - NAUSEA WITH VOMITING, UNSPECIFIED SNOMED Code(s): 975359530 (2) Constipation Status: Acute Code(s): K59.00 - CONSTIPATION, UNSPECIFIED SNOMED Code(s): 98221268 (3) Atrial flutter Status: Acute Code(s): I48.92 - UNSPECIFIED ATRIAL FLUTTER SNOMED Code(s): 0382831 (4) Chronic anticoagulation Status: Acute Code(s): Z79.01 - MANAGER BAKERY (CURRENT) USE OF ANTICOAGULANTS SNOMED Code(s): 863049056 (5) Dementia Status: Acute Code(s): F03.90 - UNSPECIFIED DEMENTIA WITHOUT BEHAVIORAL DISTURBANCE SNOMED Code(s): 19866451 (6) Duodenal obstruction Status: Acute Code(s): K31.5 - OBSTRUCTION OF DUODENUM SNOMED Code(s): 89295774
--- NOTE | 2020-07-29 18:40 | P.DS ---
<Ancelmo Medel - Last Filed: 07/29/20 18:29> Providers Expected date of discharge: 07/29/20 Hospital Course: Discharge Diagnosis: Esophageal and duodenal obstruction Elevated troponin, likely nontraumatic troponin leak secondary to atrial fibrillation with episode of rapid ventricular response. Atrial fibrillation Hypertension Hospital Course: Patient is an 85-year-old male who was transferred from [facility] secondary to concerns of a suspected bowel obstruction with CT abdomen and pelvis reportedly revealing significant distention of the stomach and first, second, and third portion of the duodenal along with retroperitoneal adenopathy. Patient was admitted under our services with consult to Gen. surgery. Labs including CBC and BMP remained unremarkable throughout admission. Troponins were were found to be elevated and peaked at 0.106 and down trended to 0.102. EKG revealed atrial flutter with RVR at 120 bpm. Echocardiogram revealed normal ejection fraction of 60-65% with severe left ventricular hypertrophy and no significant valvular disease. Cardiology evaluated and ruled out acute coronary syndrome. He underwent a barium esophagram which revealed evidence of large amount of aspiration with barium extending down into the right lower lobe. Patient was then placed under general anesthesia and taken down for an EGD with esophageal dilation. 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 Procedure was successful. Patient now having no difficulties with swallowing and able to eat regular diet without difficulty and had no problems swallowing pills. Patient reports feeling much better he is having bowel movements and able to eat without difficulties. Patient being discharged home with family and home care and to follow up with his PCP in [address] Bazzi next week. Physical exam: Patient was seen and fully evaluated at the bedside this morning. He had an episode of confusion overnight, does have history of dementia. Patient's daughter was called in and sat with patient at bedside. Daughter reports this is not uncommon. Patient back to baseline this morning and doing well. Patient able to eat all of his breakfast without any difficulties in swallowing. Patient was able to take his pills without any difficulties. Patient denies having any complaints including headache, lightheadedness, dizziness, changes in vision or hearing, sore throat or dysphasia, chest pain or palpitations, shortness of breath, abdominal pain, nausea, vomiting, or any complaints at this time. Patient stable for discharge home with family. General: non toxic, no distress, appears at stated age Derm: warm, dry Head: atraumatic, normocephalic, symmetric Eyes: EOMI, no lid lag, anicteric sclera Mouth: No lip lesion, mucus membranes dry. Missing teeth. Cardiovascular: S1S2 reg, no murmur, positive posterior tibial pulses bilaterally, cap refill less than 2 seconds. Lungs: Respirations even, regular, and unlabored on room air. Lungs CTA bilaterally, no rhonchi, no rales, no wheezing and no accessory muscle use Abdominal: soft, nontender to palpation, no guarding, no appreciable organomegaly Ext: No gross muscle atrophy, no edema, no contractures Neuro: CN II-XI grossly intact, no focal neuro deficits Psych: Alert, oriented, appropriate affect A total of 45 minutes of time were spent preparing this complex discharge summary. Patient Condition at Discharge: Stable Plan - Discharge Summary Discharge Rx Participant: No New Discharge Prescriptions: New Benzocaine [place] [Hurricaine [place]] 1 spray MUCOUS MEM QID PRN #1 can PRN Reason: Mouth Irritation Continue lisinopriL 40 mg PO HS amLODIPine [Norvasc] 2.5 mg PO HS Metoprolol Tartrate [Lopressor] 50 mg PO BID Apixaban [Eliquis] 2.5 mg PO BID Discharge Medication List Apixaban [Eliquis] 2.5 mg PO BID 07/24/20 [History] Metoprolol Tartrate [Lopressor] 50 mg PO BID 07/24/20 [History] amLODIPine [Norvasc] 2.5 mg PO HS 07/24/20 [History] lisinopriL 40 mg PO HS 07/24/20 [History] Benzocaine [place] [Hurricaine [place]] 1 spray MUCOUS MEM QID PRN #1 can 07/29/20 [Rx] Follow up Appointment(s)/Referral(s): Jose Valles MD [STAFF PHYSICIAN] - 08/19/20 3:15 pm ([place] [phone] ) Dana Regalado MD [STAFF PHYSICIAN] - 08/03/20 4:30 pm (Sunday) [facility], [NON-STAFF] - Mariano Pro MD [Primary Care Provider] - 07/30/20 12:45 pm (Sunday) Patient Instructions/Handouts: Esophageal Dilation (DC) Activity/Diet/Wound Care/Special Instructions: Activity: As tolerated. Diet: Heart healthy diet Special Instructions: Eat soft foods, monitor for any signs of coughing/choking. Follow up with scheduled appointments as directed. Discharge Disposition: HOME WITH HOME HEALTH SERVICES <Mariely Salcido - Last Filed: 07/29/20 19:21> Providers Date of admission: 07/24/20 21:44 Attending physician: Golden Melchor MD Consults: 07/24/20 21:45 Consult Physician Routine Consulting Provider: Dana Regalado Consult Reason/Comments: duodenal obstruction Do you want consulting provider notified?: Already Contacted 07/25/20 02:09 Consult Physician Routine Consulting Provider: Floyd Frost Consult Reason/Comments: High suspicion for malignancy with SBO Do you want consulting provider notified?: Yes 07/25/20 10:11 Consult Physician Routine Consulting Provider: Gee Gómez Consult Reason/Comments: elevated trop Do you want consulting provider notified?: Yes 07/25/20 10:34 Consult Physician Routine Consulting Provider: Kang Villegas Consult Reason/Comments: Zenkers diveriticulum assessment Do you want consulting provider notified?: Yes Primary care physician: Mariano Pro MD Hospital Course: Patient seen and examined independently. Patient was also seen by Ancelmo Medel NP and case was discussed. I am in agreement with discharge diagnosis, hospital course, and physical exam as written above and amended below. Patient seen and examined at bedside. No pain, no chest pain, no difficult breathing General: non toxic, no distress, appears at stated age Derm: warm, dry Head: atraumatic, normocephalic, symmetric Eyes: EOMI, no lid lag, anicteric sclera Mouth: no lip lesion, mucus membranes moist Cardiovascular: S1S2 reg, no murmur, positive posterior tibial pulse bilateral, Lungs: CTA bilateral, no rhonchi, no rales , no accessory muscle use Abdominal: soft, nontender to palpation, no guarding, no appreciable organomegaly Psych: Alert, oriented, appropriate affect
== END 2020-07-29 12:06 | disposition home health service (06) | DRG 392 ==
LOC: SUPCPDRO 20:53 → EC 20:53 → 3SCARD 21:44
PROVIDERS: ADMIT Internal Medicine; ATTEND Internal Medicine
PROC: 0D9670Z Drainage of Stomach with Drainage Device, Via Natural or Artificial Opening (ICD-10-PCS; 2020-07-24)
PROC: 0DJ08ZZ Inspection of Upper Intestinal Tract, Via Natural or Artificial Opening Endoscopic (ICD-10-PCS; 2020-07-25)
PROC: 0D718ZZ Dilation of Upper Esophagus, Via Natural or Artificial Opening Endoscopic (ICD-10-PCS; principal; 2020-07-28 10:55)
DX: K22.2 Esophageal obstruction (principal); F03.91 Unspecified dementia, unspecified severity, with behavioral disturbance; F05 Delirium due to known physiological condition; I48.11 Longstanding persistent atrial fibrillation; E87.1 Hypo-osmolality and hyponatremia; K31.5 Obstruction of duodenum; I48.3 Typical atrial flutter; I27.20 Pulmonary hypertension, unspecified; E86.0 Dehydration; Z20.822 Contact with and (suspected) exposure to COVID-19; I11.9 Hypertensive heart disease without heart failure; I08.3 Combined rheumatic disorders of mitral, aortic and tricuspid valves; K29.70 Gastritis, unspecified, without bleeding; K44.9 Diaphragmatic hernia without obstruction or gangrene; K20.90 Esophagitis, unspecified without bleeding; J39.2 Other diseases of pharynx; I44.30 Unspecified atrioventricular block; R73.9 Hyperglycemia, unspecified; E87.6 Hypokalemia; N40.0 Benign prostatic hyperplasia without lower urinary tract symptoms; R77.8 Other specified abnormalities of plasma proteins; H91.90 Unspecified hearing loss, unspecified ear; K59.00 Constipation, unspecified; D72.829 Elevated white blood cell count, unspecified; R59.0 Localized enlarged lymph nodes; Z79.01 Long term (current) use of anticoagulants; Z79.899 Other long term (current) drug therapy; Z87.19 Personal history of other diseases of the digestive system; Z83.3 Family history of diabetes mellitus
CPT/HCPCS: 43235; 43249; 70491; 71260; 74019; 74220; 80048; 80053; 82378; 83036; 83735; 84484; 85025; 85610; 85730; 87635; 93005; 93306; 99285

== ENCOUNTER 2020-08-04 10:09 | Day surgery (SDC) | payer MEDICARE ==
--- NOTE | 2020-08-04 04:11 | P.GSHP ---
History of Present Illness H&P Date: 08/04/20 CHIEF COMPLAINT: Esophageal stricture HISTORY OF PRESENT ILLNESS: The patient is a 85-year-old male who presents reports dysphagia. Upper endoscopy was offered for further evaluation and management. PAST MEDICAL HISTORY: Please see list. PAST SURGICAL HISTORY: Please see list. MEDICATIONS: Please see list. ALLERGIES: Please see list. SOCIAL HISTORY: No illicit drug use FAMILY HISTORY: No reports of Crohn disease or ulcerative colitis. REVIEW OF ORGAN SYSTEMS: CONSTITUTIONAL: No reports of fevers or chills. GI: Denies any blood in stools or constipation. PHYSICAL EXAM: VITAL SIGNS: Stable GENERAL: Well-developed and pleasant in no acute distress. HEENT: No scleral icterus. Extraocular movements grossly intact. Moist buccal mucosa. NECK: Supple without lymphadenopathy. CHEST: Unlabored respirations. Equal bilateral excursions. CARDIOVASCULAR: Irregular rate and rhythm. Distal 2+ pulses. ABDOMEN: Soft, nondistended. MUSCULOSKELETAL: No clubbing, cyanosis, or edema. ASSESSMENT: 1. Esophageal stricture PLAN: 1. Recommend proceeding with an upper endoscopy with rigid dilators. Past Medical History Past Medical History: Atrial Flutter, Hypertension, Prostate Disorder History of Any Multi-Drug Resistant Organisms: None Reported Past Surgical History: Unable to Obtain Past Psychological History: No Psychological Hx Reported Smoking Status: Never smoker Past Alcohol Use History: Occasional Past Drug Use History: None Reported - Past Family History Mother Family Medical History: Diabetes Mellitus Medications and Allergies Home Medications Medication Instructions Recorded Confirmed Type Apixaban [Eliquis] 2.5 mg PO BID 07/24/20 07/24/20 History Metoprolol Tartrate [Lopressor] 50 mg PO BID 07/24/20 07/24/20 History amLODIPine [Norvasc] 2.5 mg PO HS 07/24/20 07/24/20 History lisinopriL 40 mg PO HS 07/24/20 07/24/20 History Benzocaine [place] [Hurricaine [place]] 1 spray MUCOUS MEM QID PRN #1 can 07/29/20 Rx Allergies Allergy/AdvReac Type Severity Reaction Status Date / Time No Known Allergies Allergy Verified 07/24/20 22:08
[2020-08-04 11:01] VITALS: TEMP 98.1
[2020-08-04] MEDS ORDERED: LACTATED RINGERS 1,000 ML IV ONE (11:08)
[2020-08-04] MEDS ORDERED: LIDOCAINE 1% INJ 10MG/ML (20 ML MDV) ONE (11:55)
[2020-08-04] MEDS ORDERED: PROPOFOL 10 MG/ML 20 ML VIAL IV ONE (11:55)
--- NOTE | 2020-08-04 12:35 | P.PCN ---
Date of Procedure: 08/04/20 Description of Procedure: PREOPERATIVE DIAGNOSIS: Dysphagia. Esophageal stricture with cricopharyngeus hypertension Dementia History of duodenal obstruction POSTOPERATIVE DIAGNOSIS: Dysphagia. Esophageal stricture with cricopharyngeus hypertension Dementia History of duodenal obstruction Severe erosive esophagitis Overflow gastric content OPERATION: Esophagogastroduodenoscopy with rigid dilator over the guidewire 57 Fr. Esophagogastroduodenoscopy with aspiration over 2 L of gastric contents SURGEON: Dana Regalado MD ANESTHESIA: MAC. INDICATIONS: The patient is a 85-year-old male who presents with a history of dysphagia including esophageal obstruction due to cricopharyngeus hypertension and previous duodenal obstruction. Benefits and risks of the procedure were described. Informed consent was obtained. DESCRIPTION: The patient was brought into the endoscopy suite and laid in the left lateral decubitus position. After a timeout was confirmed, the procedure was initiated. An Olympus gastroscope was passed and the stomach was entered. Over 2 L bilious content was aspirated from the stomach. The scope was advanced to the duodenum third portion of the duodenum without obstruction mass identified. Retroflexion the scope confirmed a Hill grade 2 lower esophageal valve. Severe erosive esophagitis involving the entire length of the esophagus was found consistent with LA grade C erosive esophagitis. Next using an Luxembourger rigid dilator, a guidewire was placed through the pediatric gastroscope. Next the scope was withdrawn. A 57-Guinean rigid Luxembourger dilator was passed carefully along the posterior oropharynx to 40 cm and left in place for 2-3 minutes stretch. The dilator was withdrawn including the guidewire. The scope was reentered along the posterior oropharynx with no findings of full-thickness tear of the upper esophageal sphincter. Next, inflammation of the antrum was identified with cold forceps biopsies obtained. No full-thickness injury was encountered. The GI tract was desufflated. The patient tolerated the procedure well. FINDINGS: Squamocolumnar junction unremarkable at 40 cm. Over 2 L gastric content aspirated from the stomach Luxembourger rigid dilator 57-Guinean completed. Severe erosive esophagitis, LA grade C Diffuse gastritis. Hill grade lower esophageal valve. RECOMMENDATIONS: Start omeprazole 40 mg daily Further workup needed for persistent presentation of pseudo-duodenal obstruction with severe gastric dilation Plan - Discharge Summary New Discharge Prescriptions: New Omeprazole [PriLOSEC] 40 mg PO DAILY #14 cap Continue lisinopriL 40 mg PO HS amLODIPine [Norvasc] 2.5 mg PO HS Metoprolol Tartrate [Lopressor] 50 mg PO BID Benzocaine [place] [Hurricaine [place]] 1 spray MUCOUS MEM QID PRN #1 can PRN Reason: Mouth Irritation Discontinued Apixaban [Eliquis] 2.5 mg PO BID Discharge Medication List Metoprolol Tartrate [Lopressor] 50 mg PO BID 07/24/20 [History] amLODIPine [Norvasc] 2.5 mg PO HS 07/24/20 [History] lisinopriL 40 mg PO HS 07/24/20 [History] Benzocaine [place] [Hurricaine [place]] 1 spray MUCOUS MEM QID PRN #1 can 07/29/20 [Rx] Omeprazole [PriLOSEC] 40 mg PO DAILY #14 cap 08/04/20 [Rx] Follow up Appointment(s)/Referral(s): Dana Regalado MD [STAFF PHYSICIAN] - 08/10/20 Patient Instructions/Handouts: Complete Blenderized Diet (DC), Esophageal Dilation (DC) Discharge Disposition: HOME SELF-CARE
[2020-08-04 12:48] VITALS: BP 88/59; PULSE 117; RESP 16
== END 2020-08-04 13:27 | disposition home or self-care (01) ==
LOC: ORWHC2ENDO 10:09
PROVIDERS: ATTEND Surgery Plastic and Reconstructive Surgery
DX: K22.10 Ulcer of esophagus without bleeding (principal); K22.2 Esophageal obstruction; K29.70 Gastritis, unspecified, without bleeding; I10 Essential (primary) hypertension; F03.90 Unspecified dementia, unspecified severity, without behavioral disturbance, psychotic disturbance, mood disturbance, and anxiety; I48.92 Unspecified atrial flutter; N42.9 Disorder of prostate, unspecified; Z87.19 Personal history of other diseases of the digestive system; Z79.01 Long term (current) use of anticoagulants; Z79.899 Other long term (current) drug therapy; Z83.3 Family history of diabetes mellitus
CPT/HCPCS: 43249; J2001; J2704

== ENCOUNTER 2020-08-11 16:23 | Inpatient (IN) | payer MEDICARE ==
--- NOTE | 2020-08-11 17:59 | ED ---
Nausea/Vomiting/Diarrhea HPI - General Chief complaint: Nausea/Vomiting/Diarrhea Stated complaint: [place], Vomiting Time Seen by Provider: 08/11/20 16:55 Source: patient, EMS Mode of arrival: EMS Limitations: no limitations - History of Present Illness Initial comments: The patient is an 85-year-old male with history of duodenal obstruction who presents to [facility] with nausea and vomiting. Patient has been seen previously at our facility for similar complaints. Patient reports his been doing okay for the past couple weeks up until about 5 days ago when he began having nausea and vomiting again. Even difficult time taking in water. Reports constipation however had a bowel movement yesterday. Denies any melanic stools or hematochezia. No fevers or chills. No sick contacts. Patient evaluated at [facility] and transferred for further care. X-ray at their facility demonstrated ileus with a dilated stomach. Laboratory studies were normal. Patient received IV fluids - Related Data Home Medications Medication Instructions Recorded Confirmed Metoprolol Tartrate [Lopressor] 50 mg PO BID 07/24/20 08/11/20 Omeprazole [PriLOSEC] 40 mg PO HS 08/11/20 08/11/20 Previous Rx's Medication Instructions Recorded Enoxaparin [Lovenox] 40 mg SQ DAILY syringe 08/14/20 Allergies Allergy/AdvReac Type Severity Reaction Status Date / Time No Known Allergies Allergy Verified 08/11/20 18:27 Review of Systems ROS Statement: Those systems with pertinent positive or pertinent negative responses have been documented in the HPI. ROS Other: All systems not noted in ROS Statement are negative. Past Medical History Past Medical History: Atrial Flutter, Hypertension, Prostate Disorder Additional Past Medical History / Comment(s): bowel obstruction History of Any Multi-Drug Resistant Organisms: None Reported Past Surgical History: Unable to Obtain Past Psychological History: No Psychological Hx Reported Smoking Status: Never smoker Past Alcohol Use History: Occasional Past Drug Use History: None Reported - Past Family History Mother Family Medical History: Diabetes Mellitus Father Family Medical History: No Reported History Additional Family Medical History / Comment(s): Father was healthy General Exam Limitations: no limitations General appearance: alert, in no apparent distress Head exam: Present: atraumatic, normocephalic, normal inspection Eye exam: Present: normal appearance, PERRL, EOMI. Absent: scleral icterus, conjunctival injection, periorbital swelling ENT exam: Present: normal exam, mucous membranes moist Neck exam: Present: normal inspection. Absent: tenderness, meningismus, lymphadenopathy Respiratory exam: Present: normal lung sounds bilaterally. Absent: respiratory distress, wheezes, rales, rhonchi, stridor Cardiovascular Exam: Present: regular rate, normal rhythm, normal heart sounds. Absent: systolic murmur, diastolic murmur, rubs, gallop, clicks GI/Abdominal exam: Present: soft, distended, tenderness. Absent: guarding, rebound, rigid Extremities exam: Present: normal inspection, full ROM, normal capillary refill. Absent: tenderness, pedal edema, joint swelling, calf tenderness Back exam: Present: normal inspection Neurological exam: Present: alert, oriented X3, CN II-XII intact Psychiatric exam: Present: normal affect, normal mood Skin exam: Present: warm, dry, intact, normal color. Absent: rash Course Vital Signs 08/11/20 08/11/20 08/11/20 16:53 19:41 20:05 Temperature 99.5 F Pulse Rate 87 85 75 Pulse Rate [ Pulse Oximetery ] Respiratory 18 18 16 Rate Blood Pressure 107/76 121/80 135/89 Blood Pressure [Left Arm Supine] O2 Sat by Pulse 97 99 95 Oximetry 08/12/20 08/12/20 08/12/20 05:53 12:23 12:29 Temperature 97.7 F 98.6 F Pulse Rate 84 90 90 Pulse Rate [ Pulse Oximetery ] Respiratory 18 18 Rate Blood Pressure 102/78 99/66 Blood Pressure [Left Arm Supine] O2 Sat by Pulse 96 96 Oximetry 08/12/20 08/12/20 08/13/20 15:03 20:00 02:00 Temperature 99.5 F 98.1 F Pulse Rate 96 Pulse Rate [ 109 H 97 Pulse Oximetery ] Respiratory 18 18 16 Rate Blood Pressure 113/82 Blood Pressure 134/87 127/81 [Left Arm Supine] O2 Sat by Pulse 97 98 96 Oximetry 08/13/20 08/13/20 08/13/20 06:34 10:39 15:49 Temperature 99.1 F 98.6 F Pulse Rate Pulse Rate [ 66 110 H Pulse Oximetery ] Respiratory 16 16 16 Rate Blood Pressure Blood Pressure 104/62 93/62 [Left Arm Supine] O2 Sat by Pulse 100 99 Oximetry 08/13/20 20:00 Temperature 97.9 F Pulse Rate Pulse Rate [ 93 Pulse Oximetery ] Respiratory 15 Rate Blood Pressure Blood Pressure 97/56 [Left Arm Supine] O2 Sat by Pulse 96 Oximetry Medical Decision Making - Medical Decision Making Upon arrival patient is placed into room 23. I did review the patient's chart from [facility]. I did repeat laboratory studies and added on a CT the patient's abdomen. Laboratory studies within normal limits. CT dem onstrates a large stomach simmered told exam inconsistent with some gastric outlet obstruction or gastroparesis. As the patient does have persistent symptoms with inability to hold down any food he will be admitted. I spoke with Iglesia from [facility] who agreed to admit the patient. Dr. Regalado and Dr. Reynoso on consult. Patient's remained in stable condition awaiting a bed - Lab Data Result diagrams: 08/12/20 05:48 08/14/20 05:13 Lab Results 08/11/20 08/11/20 08/11/20 Range/Units 18:19 18:19 21:04 WBC 11.7 H (3.8-10.6) k/uL RBC 5.29 (4.30-5.90) m/uL Hgb 16.9 (13.0-17.5) gm/dL Hct 48.5 (39.0-53.0) % MCV 91.7 (80.0-100.0) fL MCH 31.9 (25.0-35.0) pg MCHC 34.8 (31.0-37.0) g/dL RDW 12.3 (11.5-15.5) % Plt Count 297 (150-450) k/uL MPV 8.0 Immature Gran % (Auto) % Absolute Nucleated RBC (0.00-0.00) X 10*3/uL Neutrophils % 51 % Lymphocytes % 33 % Monocytes % 11 % Eosinophils % 1 % Basophils % 1 % Immature Gran # (0.00-0.04) X 10*3/uL Neutrophils # 5.9 (1.3-7.7) k/uL Lymphocytes # 3.9 (1.0-4.8) k/uL Monocytes # 1.3 H (0-1.0) k/uL Eosinophils # 0.2 (0-0.7) k/uL Basophils # 0.1 (0-0.2) k/uL NRBC/100 WBC Diff (0.0-0.0) /100 WBCS Sodium 133 L (137-145) mmol/L Potassium 3.8 (3.5-5.1) mmol/L Chloride 95 L (98-107) mmol/L Carbon Dioxide 32 H (22-30) mmol/L Anion Gap 6 mmol/L BUN 25 H (9-20) mg/dL Creatinine 1.04 (0.66-1.25) mg/dL Est GFR (CKD-EPI)AfAm 76 (>60 ml/min/1.73 sqM) Est GFR (CKD-EPI)NonAf 66 (>60 ml/min/1.73 sqM) BUN/Creatinine Ratio (12.00-20.00) Ratio Glucose 110 H (74-99) mg/dL Calcium 9.0 (8.4-10.2) mg/dL Total Bilirubin 1.0 (0.2-1.3) mg/dL AST 21 (17-59) U/L ALT 15 (4-49) U/L Alkaline Phosphatase 64 (38-126) U/L Total Protein 5.6 L (6.3-8.2) g/dL Albumin 3.2 L (3.5-5.0) g/dL Coronavirus (PCR) Not Detected (Not Detectd) 08/12/20 08/12/20 Range/Units 05:48 05:48 WBC 12.94 H (3.8-10.6) k/uL RBC 5.18 (4.30-5.90) m/uL Hgb 16.1 (13.0-17.5) gm/dL Hct 47.2 (39.0-53.0) % MCV 91.1 (80.0-100.0) fL MCH 31.1 (25.0-35.0) pg MCHC 34.1 (31.0-37.0) g/dL RDW 12.5 (11.5-15.5) % Plt Count 306 (150-450) k/uL MPV 11.3 Immature Gran % (Auto) 0.6 % Absolute Nucleated RBC 0 (0.00-0.00) X 10*3/uL Neutrophils % 66.9 % Lymphocytes % 22.3 % Monocytes % 8.2 % Eosinophils % 1.5 % Basophils % 0.5 % Immature Gran # 0.08 H (0.00-0.04) X 10*3/uL Neutrophils # 8.65 H (1.3-7.7) k/uL Lymphocytes # 2.89 (1.0-4.8) k/uL Monocytes # 1.06 H (0-1.0) k/uL Eosinophils # 0.20 (0-0.7) k/uL Basophils # 0.06 (0-0.2) k/uL NRBC/100 WBC Diff 0 (0.0-0.0) /100 WBCS Sodium 138 (137-145) mmol/L Potassium 3.6 (3.5-5.1) mmol/L Chloride 95 L (98-107) mmol/L Carbon Dioxide 33.9 H (22-30) mmol/L Anion Gap 9.10 mmol/L BUN 22.0 (9-20) mg/dL Creatinine 1.3 (0.66-1.25) mg/dL Est GFR (CKD-EPI)AfAm 57.7 L (>60 ml/min/1.73 sqM) Est GFR (CKD-EPI)NonAf 49.8 L (>60 ml/min/1.73 sqM) BUN/Creatinine Ratio 16.92 (12.00-20.00) Ratio Glucose 143 H (74-99) mg/dL Calcium 9.3 (8.4-10.2) mg/dL Total Bilirubin (0.2-1.3) mg/dL AST (17-59) U/L ALT (4-49) U/L Alkaline Phosphatase (38-126) U/L Total Protein (6.3-8.2) g/dL Albumin (3.5-5.0) g/dL Coronavirus (PCR) (Not Detectd) Disposition Clinical Impression: Intractable nausea and vomiting Disposition: ADMITTED IP TO [facility] Condition: Stable Is patient prescribed a controlled substance at d/c from ED?: No Decision to Admit Reason: Admit from EC Decision Date: 08/11/20 Decision Time: 19:47
[2020-08-11 18:25] LABS: Basophils # (A) 0.1 k/uL (0-0.2); Basophils % (A) 1 %; Eosinophils # (A) 0.2 k/uL (0-0.7); Eosinophils % (A) 1 %; HCT 48.5 % (39.0-53.0); HGB 16.9 gm/dL (13.0-17.5); Lymphocytes # (A) 3.9 k/uL (1.0-4.8); Lymphocytes % (A) 33 %; MCH 31.9 pg (25.0-35.0); MCHC 34.8 g/dL (31.0-37.0); MCV 91.7 fL (80.0-100.0); Monocytes # (A) 1.3 k/uL (0-1.0); Monocytes % (A) 11 %; Neutrophils # (A) 5.9 k/uL (1.3-7.7); Neutrophils % (A) 51 %; Platelet Count 297 k/uL (150-450); RBC 5.29 m/uL (4.30-5.90); RDW 12.3 % (11.5-15.5); WBC 11.7 k/uL (3.8-10.6)
[2020-08-11 18:31] LABS: Potassium 3.8 mmol/L (3.5-5.1)
[2020-08-11 18:32] LABS: Albumin 3.2 g/dL (3.5-5.0); Total Protein 5.6 g/dL (6.3-8.2)
--- NOTE | 2020-08-11 18:55 | CT ---
EXAMINATION TYPE: CT abdomen pelvis w con DATE OF EXAM: 08/11/2020 COMPARISON: 07/24/2020 HISTORY: Duodenal stricture. Difficulty keeping food down x 2 months, [address] DLP: 734.6 mGycm Automated exposure control for dose reduction was used. CONTRAST: Performed with IV Contrast, patient injected with 100 mL of Isovue 300. There is minimal subsegmental atelectasis at the lung bases. Heart size is normal. There is no perica rdial effusion. Liver and spleen appear intact. The stomach is large with air and fluid. Gallbladder appears normal. There is no adrenal mass. Kidneys show satisfactory contrast opacification. There is no hydronephrosi s. There is 2.7 cm cortical cyst lateral left kidney. There is no hydronephrosis. There is no retrope ritoneal adenopathy. Delayed images show normal renal excretion. Bladder distends smoothly. There is moderate enlargement of the prostate gland that measures 6.8 cm. There is no inguinal hernia. There i s no free fluid in the pelvis. Appendix is posterior and appears normal. There is no mesenteric edema. There is no ascites or free air. There is no bowel obstruction. Lumbar vertebra show fairly normal alignment. There is minimal L4-5 subluxation of a few millimeters. The posterior elements are intact. There is no compression fracture. Bony pelvis is intact. There is some mild acetabular spurring. Proximal femurs are intact. IMPRESSION: Enlarged stomach similar to old exam and consistent with some gastric outlet obstruction or gastropar esis. Markedly enlarged prostate.
[2020-08-11] MEDS ORDERED: ACETAMINOPHEN TAB 325 MG TAB PO PRN (19:48)
[2020-08-11] MEDS ORDERED: NALOXONE 0.4 MG/ML 1 ML VIAL IV PRN (19:48)
[2020-08-11] MEDS: SODIUM CHLORIDE 0.9% 1,000 ML IV SCH (20:00)
--- NOTE | 2020-08-12 08:21 | P.GSCN ---
History of Present Illness Consult date: 08/12/20 History of present illness: CHIEF COMPLAINT: Intractable nausea and vomiting HISTORY OF PRESENT ILLNESS: The patient is a 85-year-old male previously admitted almost one month ago for intractable nausea and vomiting and duodenal obstruction. He has baseline history of dementia were additional history is obtained by his daughter. At his first hospitalization, patient had attempted upper endoscopy with new findings of severe upper esophageal stricture requiring multiple dilations. He had done well where he was able to tolerate regular diet and released home. He then presented to the office with recurrent coughing spells and concern of recurrent symptoms 1 week after discharge. 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 Patient presented back to the ER with recurrent intractable nausea and vomiting. He does report having bowel movements and passing flatus. Overall, patient's symptoms has been chronic for over 2-3 months with evaluation by multiple providers and incidental weight loss over 30 pounds. PAST MEDICAL HISTORY: See list and reviewed and agree PAST SURGICAL HISTORY: See list and reviewed and agree MEDICATIONS: See list and reviewed and agree ALLERGIES: See list and reviewed and agree SOCIAL HISTORY: See list and reviewed and agree FAMILY HISTORY: See list and reviewed and agree REVIEW OF ORGAN SYSTEMS: CONSTITUTIONAL: No fevers or chills. Has over 30 pound weight loss. EYES: Denies any trouble with vision. No glasses. HEENT: No difficulties with hearing. No nosebleeds. History of upper esophageal stenosis. RESPIRATORY: Has chronic cough. CARDIOVASCULAR: History of atrial flutter with atrial fibrillation and chronic anticoagulant. Has hypertensive heart disease. GASTROINTESTINAL: Has gastroesophageal reflux disease. Past change in bowel habits with constipation. Past history of colonoscopy less than 2 years ago. GENITOURINARY: Denies any blood in urine or increased urinary frequency. NEUROLOGICAL: Denies any numbness or tingling along the distal extremities. No seizure disorders or headaches. MUSCULOSKELETAL: Denies any back pain, stiffness or joint arthritis. SKIN: No current skin cancer. No rash. PSYCHIATRIC: Has moderate dementia. No depression. ENDOCRINE: Denies current thyroid disorders. Has diabetes. Last hemoglobin A1c over 6.1. HEME/LYMPHATIC: Denies any lumps and bumps around the neck. No recent deep venous thrombosis. ALLERGY/IMMUNOLOGY: No immunoglobulin therapy. No immune deficiencies. BREAST: Denies current breast lumps, pain or nipple discharge. PHYSICAL EXAM: VITALS: Reviewed CONSTITUTIONAL: Well developed and in no acute distress. EYES: Conjuctivae without sclera icterus. Extraocular movements grossly intact. HEAD, EARS, NOSE, THROAT: Moist buccal mucosa. Head is atraumatic, normocephalic. Hears conversational speech. No nasal drainage. NECK: No thyroidomegaly. RESPIRATORY: Non-labored respirations and equal bilateral excursions. No gross wheezes. CARDIOVASCULAR: Palpable 2+ radial pulses. Irregular rate and irregular rhythm. ABDOMEN: Soft. Minimal distention. MUSCULOSKELETAL: Nail and fingers with good capillary refill. SKIN: Warm and well perfused with good skin turgor. NEUROLOGIC: Cranial nerves II through XII grossly intact. Sensation upper and extremities intact. No focal or lateralizing signs. PSYCH: Appropriate affect. Alert and oriented to person, place and time. Displays appropriate insight. CLINCAL LABS: Reviewed. WBC elevated at over 11,000. IMAGING: Independently reviewed CT of the abdomen and pelvis with dilation of stomach to duodenal sweep. Lack of contrast and small bowel. No free air or small or large bowel obstruction identified RADIOLOGY: Report reviewed CT abdomen and pelvis. Extremely large prostate over 6 cm to 7 cm. Enlarged stomach suggestive of gastroparesis versus gastric outlet obstruction. RECORDS: Recent hospitalization records reviewed with evaluation by cardiology for atrial fibrillation/flutter. Outside computed tomography scan demonstrated moderately dilated stomach. Previous upper endoscopy demonstrated over 2 L of retained food in the stomach suctioned. Upper esophagus dilated over 50-[place]. ASSESSMENT: 1. Pre-existing history of severe esophageal stenosis, upper esophagus 2. Intractable nausea and vomiting 3. Abnormal computed tomography scan for duodenal obstruction 4. Severe dementia 5. Atrial fibrillation/flutter PLAN: 1. Computed tomography scan shows questionable mass or lesion at junction of duodenum versus jejunum. Recommend MRI of the abdomen for soft tissue mass. His prior CT scans have been limited in evaluating intraluminal versus extraluminal compression for persistent duodenal obstruction. 2. Pending findings on MRI of the abdomen, symptomatic treatment with gastric decompression versus gastrojejunostomy ay be needed for recurrent duodenal obstruction 3. At this time, nothing by mouth except ice chips. Past Medical History Past Medical History: Atrial Flutter, Hypertension, Prostate Disorder Additional Past Medical History / Comment(s): bowel obstruction History of Any Multi-Drug Resistant Organisms: None Reported Past Surgical History: Unable to Obtain Past Psychological History: No Psychological Hx Reported Smoking Status: Never smoker Past Alcohol Use History: Occasional Past Drug Use History: None Reported - Past Family History Mother Family Medical History: Diabetes Mellitus Father Family Medical History: No Reported History Additional Family Medical History / Comment(s): Father was healthy Medications and Allergies Home Medications Medication Instructions Recorded Confirmed Type Metoprolol Tartrate [Lopressor] 50 mg PO BID 07/24/20 08/11/20 History amLODIPine [Norvasc] 2.5 mg PO HS 07/24/20 08/11/20 History lisinopriL 40 mg PO HS 07/24/20 08/11/20 History Omeprazole [PriLOSEC] 40 mg PO HS 08/11/20 08/11/20 History Rivaroxaban [Xarelto] 15 mg PO DIRECTED 08/11/20 08/11/20 History Allergies Allergy/AdvReac Type Severity Reaction Status Date / Time No Known Allergies Allergy Verified 08/11/20 18:27 Surgical - Exam Vital Signs Temp Pulse Resp BP Pulse Ox 99.5 F 87 18 107/76 97 08/11/20 16:53 08/11/20 16:53 08/11/20 16:53 08/11/20 16:53 08/11/20 16:53 Results - Labs 08/12/20 05:48 08/12/20 05:48 Abnormal Lab Results - Last 24 Hours (Table) 08/11/20 08/11/20 Range/Units 18:19 18:19 WBC 11.7 H (3.8-10.6) k/uL Monocytes # 1.3 H (0-1.0) k/uL Sodium 133 L (137-145) mmol/L Chloride 95 L (98-107) mmol/L Carbon Dioxide 32 H (22-30) mmol/L BUN 25 H (9-20) mg/dL Glucose 110 H (74-99) mg/dL Total Protein 5.6 L (6.3-8.2) g/dL Albumin 3.2 L (3.5-5.0) g/dL Diabetes panel 08/11/20 Range/Units 18:19 Sodium 133 L (137-145) mmol/L Potassium 3.8 (3.5-5.1) mmol/L Chloride 95 L (98-107) mmol/L Carbon Dioxide 32 H (22-30) mmol/L BUN 25 H (9-20) mg/dL Creatinine 1.04 (0.66-1.25) mg/dL Glucose 110 H (74-99) mg/dL Calcium 9.0 (8.4-10.2) mg/dL AST 21 (17-59) U/L ALT 15 (4-49) U/L Alkaline Phosphatase 64 (38-126) U/L Total Protein 5.6 L (6.3-8.2) g/dL Albumin 3.2 L (3.5-5.0) g/dL Calcium panel 08/11/20 Range/Units 18:19 Calcium 9.0 (8.4-10.2) mg/dL Albumin 3.2 L (3.5-5.0) g/dL Pituitary panel 08/11/20 Range/Units 18:19 Sodium 133 L (137-145) mmol/L Potassium 3.8 (3.5-5.1) mmol/L Chloride 95 L (98-107) mmol/L Carbon Dioxide 32 H (22-30) mmol/L BUN 25 H (9-20) mg/dL Creatinine 1.04 (0.66-1.25) mg/dL Glucose 110 H (74-99) mg/dL Calcium 9.0 (8.4-10.2) mg/dL Adrenal panel 08/11/20 Range/Units 18:19 Sodium 133 L (137-145) mmol/L Potassium 3.8 (3.5-5.1) mmol/L Chloride 95 L (98-107) mmol/L Carbon Dioxide 32 H (22-30) mmol/L BUN 25 H (9-20) mg/dL Creatinine 1.04 (0.66-1.25) mg/dL Glucose 110 H (74-99) mg/dL Calcium 9.0 (8.4-10.2) mg/dL Total Bilirubin 1.0 (0.2-1.3) mg/dL AST 21 (17-59) U/L ALT 15 (4-49) U/L Alkaline Phosphatase 64 (38-126) U/L Total Protein 5.6 L (6.3-8.2) g/dL Albumin 3.2 L (3.5-5.0) g/dL
[2020-08-12 09:34] LABS: Basophils # (A) 0.06 X 10*3/uL (0.00-0.10); Basophils % (A) 0.5 %; Eosinophils % (A) 1.5 %; HCT 47.2 % (39.6-50.0); HGB 16.1 g/dL (13.0-17.0); Lymphocytes # (A) 2.89 X 10*3/uL (0.90-5.00); Lymphocytes % (A) 22.3 %; MCH 31.1 pg (27.0-32.0); MCHC 34.1 g/dL (32.0-37.0); MCV 91.1 fL (80.0-97.0); Mean Platelet Volume 11.3 fL (9.5-12.2); Monocytes # (A) 1.06 X 10*3/uL (0.20-1.00); Monocytes % (A) 8.2 %; Neutrophils # (A) 8.65 X 10*3/uL (1.80-7.70); Neutrophils % (A) 66.9 %; Platelet Count 306 X 10*3/uL (140-440); RBC 5.18 X 10*6/uL (4.40-5.60); RDW 12.5 % (11.5-14.5); WBC 12.94 X 10*3/uL (4.50-10.00)
[2020-08-12 09:50] LABS: African American GFR (CKD) 57.7 (60.0-200.0); Anion Gap 9.1 mmol/L (4.00-12.00); BUN/Creat Ratio 16.92 Ratio (12.00-20.00); Calcium 9.3 mg/dL (8.7-10.3); Carbon Dioxide 33.9 mmol/L (21.6-31.8); Non-African American GFR(CKD) 49.8 (60.0-200.0); Potassium 3.6 mmol/L (3.5-5.5)
--- NOTE | 2020-08-12 14:42 | P.HPIM ---
History of Present Illness Patient is very pleasant 85-year-old male came in with complains of nausea vomiting has been going on for about 5-7 days. Patient denied any diarrhea was having some minimal nonspecific diffuse abdominal pain. Patient had a CT of the abdomen which showed distended stomach consistent with gastric outlet obstruction or gastroparesis. Patient is undergoing MRI to assess the duodenal area better. Patient doesn't have any fever chills. Review of Systems REVIEW OF SYSTEMS: CONSTITUTIONAL: No fever, no malaise, no fatigue. HEENT: No recent visual problems or hearing problems. Denied any sore throat. CARDIOVASCULAR: No chest pain, orthopnea, PND, no palpitations, no syncope. PULMONARY: No shortness of breath, no cough, no hemoptysis. GASTROINTESTINAL: As mentioned in HPI NEUROLOGICAL: No headaches, no weakness, no numbness. HEMATOLOGICAL: Denies any bleeding or petechiae. GENITOURINARY: Denies any burning micturition, frequency, or urgency. MUSCULOSKELETAL/RHEUMATOLOGICAL: Denies any joint pain, swelling, or any muscle pain. ENDOCRINE: Denies any polyuria or polydipsia. The rest of the 14-point review of systems is negative. Past Medical History Past Medical History: Atrial Fibrillation, Atrial Flutter, Hypertension, Prostate Disorder Additional Past Medical History / Comment(s): Pt recently admitted to [facility] on 08/04/20 with esophageal and duodenal obstruction/dysphagia, aspiration. Other hx: Recetn EGDs for dilation, gastritis, esophagitis, severe stenosis of upper esophageal sphincter, past benign colon polypectomy, BPH with surgery, occasional leakage of urine, History of Any Multi-Drug Resistant Organisms: None Reported Past Surgical History: Hernia Repair, Prostate Surgery Additional Past Surgical History / Comment(s): 07/25/20 EGD with some dilatation, 08/04/20 EGD with successful dilation, 2018 colonoscopy/benign polypectomy, TURP, umbilical hernia repair, bilateral cataract removals/lens implants Past Anesthesia/Blood Transfusion Reactions: Motion Sickness Additional Past Anesthesia/Blood Transfusion Reaction / Comment(s): Pt had confusion. Smoking Status: Never smoker - Past Family History Mother Family Medical History: Diabetes Mellitus Father Family Medical History: No Reported History Additional Family Medical History / Comment(s): Father was healthy Medications and Allergies Home Medications Medication Instructions Recorded Confirmed Type Metoprolol Tartrate [Lopressor] 50 mg PO BID 07/24/20 08/11/20 History amLODIPine [Norvasc] 2.5 mg PO HS 07/24/20 08/11/20 History lisinopriL 40 mg PO HS 07/24/20 08/11/20 History Omeprazole [PriLOSEC] 40 mg PO HS 08/11/20 08/11/20 History Rivaroxaban [Xarelto] 15 mg PO DIRECTED 08/11/20 08/11/20 History Allergies Allergy/AdvReac Type Severity Reaction Status Date / Time No Known Allergies Allergy Verified 08/11/20 18:27 Physical Exam Vitals: Vital Signs Temp Pulse Resp BP Pulse Ox 08/12/20 12:29 90 08/12/20 12:23 98.6 F 90 18 99/66 96 08/12/20 05:53 97.7 F 84 18 102/78 96 08/11/20 20:05 75 16 135/89 95 08/11/20 19:41 85 18 121/80 99 08/11/20 16:53 99.5 F 87 18 107/76 97 Intake and Output 08/11/20 08/12/20 08/12/20 22:59 06:59 14:59 Other: Voiding Method Toilet Weight 77.111 kg 77.111 kg PHYSICAL EXAMINATION: GENERAL: The patient is alert and oriented x3, not in any acute distress. Well developed, well nourished. HEENT: Pupils are round and equally reacting to light. EOMI. No scleral icterus. No conjunctival pallor. Normocephalic, atraumatic. No pharyngeal erythema. No thyromegaly. CARDIOVASCULAR: S1 and S2 present. No murmurs, rubs, or gallops. PULMONARY: Chest is clear to auscultation, no wheezing or crackles. ABDOMEN: Soft, sluggish bowel sounds. No palpable organomegaly. MUSCULOSKELETAL: No joint swelling or deformity. EXTREMITIES: No cyanosis, clubbing, or pedal edema. NEUROLOGICAL: Gross neurological examination did not reveal any focal deficits. SKIN: No rashes. Results CBC & Chem 7: 08/12/20 05:48 08/12/20 05:48 Labs: Abnormal Lab Results - Last 24 Hours (Table) 08/11/20 08/11/20 08/12/20 Range/Units 18:19 18:19 05:48 WBC 11.7 H 12.94 H (3.8-10.6) k/uL Immature Gran # 0.08 H (0.00-0.04) X 10*3/uL Neutrophils # 8.65 H (1.80-7.70) X 10*3/uL Monocytes # 1.3 H 1.06 H (0-1.0) k/uL Sodium 133 L (137-145) mmol/L Chloride 95 L (98-107) mmol/L Carbon Dioxide 32 H (22-30) mmol/L BUN 25 H (9-20) mg/dL Est GFR (CKD-EPI)AfAm (60.0-200.0) Est GFR (CKD-EPI)NonAf (60.0-200.0) Glucose 110 H (74-99) mg/dL Total Protein 5.6 L (6.3-8.2) g/dL Albumin 3.2 L (3.5-5.0) g/dL 08/12/20 Range/Units 05:48 WBC (3.8-10.6) k/uL Immature Gran # (0.00-0.04) X 10*3/uL Neutrophils # (1.80-7.70) X 10*3/uL Monocytes # (0-1.0) k/uL Sodium (137-145) mmol/L Chloride 95 L (98-107) mmol/L Carbon Dioxide 33.9 H (22-30) mmol/L BUN (9-20) mg/dL Est GFR (CKD-EPI)AfAm 57.7 L (60.0-200.0) Est GFR (CKD-EPI)NonAf 49.8 L (60.0-200.0) Glucose 143 H (74-99) mg/dL Total Protein (6.3-8.2) g/dL Albumin (3.5-5.0) g/dL Thrombosis Risk Factor Assmnt - Choose All That Apply Any of the Below Risk Factors Present?: Yes Each Risk Factor Represents 3 Points: Age 75 years or older Other congenital or acquired thrombophilia - If yes, enter type in comment: No Thrombosis Risk Factor Assessment Total Risk Factor Score: 3 Thrombosis Risk Factor Assessment Level: Moderate Risk Assessment and Plan Plan: -Nausea vomiting: Most probably secondary to gastric outlet obstruction or questionable mass for which patient is undergoing MRA of the abdomen as per Gen. surgery patient with continued on IV fluids -Hypertension patient blood pressure is low normal at this time. Blood pressure medications will be held temporarily -Acute renal failure: Patient will be continued on IV fluids repeat basic metabolic profile tomorrow -Leukocytosis reactive without any evidence of infection at this time -DVT prophylaxis with Lovenox
[2020-08-12] MEDS: SODIUM CHLORIDE 0.9% 1,000 ML IV SCH (15:52)
[2020-08-12] MEDS: ONDANSETRON 4 MG/2 ML VIAL IVP PRN (15:57)
--- NOTE | 2020-08-12 16:08 | CONS ---
CONSULTATION DATE OF DICTATION: 08/12/2020 REASON FOR CONSULTATION: Persistent nausea, vomiting, and progressive weight loss of 30 pounds in the last 6 weeks' duration. HISTORY OF PRESENT ILLNESS: The patient is an 85-year-old pleasant white male who was brought to the emergency room by his family because of persistent nausea and vomiting that has been going on since May of this year. He has been having these intermittent episodes 3 or 4 times a week with nausea, vomiting and passive regurgitation, and progressive weight loss of almost 30 pounds. The patient had extensive investigation by Dr. Regalado on an outpatient basis. He initially had an attempted upper endoscopy on 07/25/[address] Regalado that showed cricopharyngeal hypertrophy, and the scope could not be advanced. A CT of the abdomen done at that time on 07/25/2020 showed evidence of retained fluid and dilated fluid-filled stomach suspicious for gastric outlet obstruction. He underwent a repeat upper endoscopy on 07/[address] Regalado, and this time she dilated the cricopharyngeal area and subsequently was able to pass the scope into the stomach and duodenum. All four portions of the duodenum appeared normal. Stomach also appeared normal. There was no evidence of gastric outlet obstruction. There was a small diaphragmatic hiatal hernia noted and there was LA grade B reflux esophagitis. The patient subsequently was started on Protonix 40 mg twice daily and he was discharged home on 07/29. He had an upper endoscopy done on 08/04, once again showing similar findings, but almost 2 L of gastric contents were aspirated at the time of the EGD. Once again, according to the note, the scope was advanced into the third and fourth portion of the duodenum, and no obvious lesions were identified. PAST MEDICAL HISTORY: Significant for hypertension, hyperlipidemia, atrial fibrillation, on Xarelto, gastroesophageal reflux disease. PAST SURGICAL HISTORY: CABG several years ago, multiple EGDs as mentioned above in the last 2 weeks' duration. MEDICATIONS: Medications at home include Lopressor, Norvasc, lisinopril, Prilosec, Xarelto. ALLERGIES: NONE. SOCIAL HISTORY: No smoking. No alcohol use. FAMILY HISTORY: Mother has diabetes mellitus. REVIEW OF SYSTEMS: CARDIOPULMONARY: No chest pain or shortness of breath. GENITOURINARY: No dysuria or hematuria. MUSCULOSKELETAL: Unremarkable. SKIN: Unremarkable. ENDOCRINE: Unremarkable. PSYCHIATRIC: Unremarkable. NEUROLOGY: Unremarkable. ENT/VISION: Unremarkable. CONSTITUTIONAL: Weight loss of 30 pounds. No fever, chills, night sweats. GI: As mentioned above. HEMATOLOGY: Unremarkable. PHYSICAL EXAMINATION: He appears comfortable. No apparent distress. VITAL SIGNS: Stable. Blood pressure is 113/82, pulse rate 86 per minute, and afebrile. HEENT examination unremarkable. Conjunctivae pink. Sclerae anicteric. Oral cavity no lesions. NECK: No JVD or lymph node enlargement. CHEST: Clear to auscultation. HEART: Regular rate and rhythm. ABDOMEN: Soft. It was non-distended, non-tender. Bowel sounds are positive. No organomegaly. EXTREMITIES: No pedal edema. SKIN: No rashes. NEUROLOGIC: He is alert and oriented x3. No focal deficits. LABS: WBC 12.9, hemoglobin 16.1, platelets are normal. BUN and creatinine are 22 and 1.3, respectively. Basic metabolic panel is within normal limits. CO2 is 33. AST, ALT, T- bilirubin and alkaline phosphatase are within normal limits. Coronavirus PCR is negative. CT of the abdomen and pelvis done during this hospitalization yesterday showed enlarged stomach similar to the prior examination consistent with some gastric outlet obstruction or gastroparesis and mildly enlarged prostate. IMPRESSION: 1. This is a patient who presented to the hospital with persistent nausea, vomiting and progressive weight loss of 30 pounds in the last 3 months' duration. He had two upper endoscopies done by Dr. Regalado on 07/28 as well as 08/04 which revealed cricopharyngeal hypertrophy with stricture that was dilated, but the scope was able to be advanced into the stomach and duodenum all the way into the fourth part of the duodenum, and there was no obvious duodenal obstruction identified. CT scans done during his previous hospitalization and during this hospitalization once again showed enlarged and dilated fluid-filled stomach. During the last upper endoscopy, there was almost 2 L of fluid that was aspirated from the stomach. The patient lost about 30 pounds since the onset of these symptoms; hence possibility of a proximal small bowel obstruction needs to be excluded. 2. Severe esophagitis, on Protonix 40 mg daily. 3. History of atrial fibrillation, on Xarelto, currently on hold. 4. History of hypertension. RECOMMENDATIONS: 1. Will obtain upper GI small-bowel series to rule out any proximal small bowel obstruction. 2. In the meantime, continue with Protonix 40 mg twice daily. 3. Will discuss with Dr. Regalado. 4. Continue to hold Xarelto. 5. Will follow with you closely. Thank you for this consultation. MMODL / IJN: [id number] /
[2020-08-12] MEDS: METOPROLOL TARTRATE 50 MG TAB PO SCH (20:21)
[2020-08-12] MEDS: PANTOPRAZOLE 40 MG/10 ML VIAL IVP SCH (20:21)
[2020-08-13] MEDS: PANTOPRAZOLE 40 MG/10 ML VIAL IVP SCH ×2 (09:57→20:54)
[2020-08-13] MEDS: METOPROLOL TARTRATE 50 MG TAB PO SCH ×2 (09:57→20:52)
[2020-08-13] MEDS: ENOXAPARIN 40 MG/0.4 ML SYRINGE SQ SCH (09:57)
[2020-08-13] MEDS: SODIUM CHLORIDE 0.9% 1,000 ML IV SCH ×3 (10:04→18:38)
[2020-08-13 12:40] VITALS: BMI 25.1
--- NOTE | 2020-08-13 13:00 | P.PN ---
Subjective Progress Note Date: 08/13/20 Principal diagnosis: Persistent nausea and vomiting with weight loss This a pleasant white male patient who came into the emergency department yesterday with persistent nausea and vomiting that has been going on since May of this year. Has intermittent episodes 3-4 times a week with nausea and vomiting and passive regurgitation with progressive weight loss of almost 30 pounds. He's had an extensive investigation by Dr. Regalado. Initial attempted upper endoscopy on 07/17/2020 that showed cricopharyngeal hypertrophy and the scope could not be advanced, CT of the abdomen done at that time showed evidence of retained fluid and dilated fluid-filled stomach suspicious for gastric outlet syndrome. He underwent a repeat upper endoscopy on 07/28/[address] Regalado where she dilated the cricopharyngeal area and subsequently was able to pass scope into the stomach and duodenum. All 4 portions of the duodenum appeared normal stomach also appeared normal. No evidence of gastric outlet obstruction with small diaphragmatic hiatal hernia noted and LA grade B reflux esophagitis he again had an upper endoscopy done on 08/04/2020 once again showing similar findings but there was almost 2 L of gastric contents aspirated at the time of the EGD and according to the scope was advanced to the third and fourth portion of the duodenum and no obvious lesions were identified. X Today the patient is seen and examined lying in bed. Apparently he had 2 or 3 episodes of nausea with vomiting, which was reported as bile. He denies any abdominal pain, nausea, or vomiting at this time. He is scheduled for an MRI of the abdomen as well as an upper GI with small bowel series. Objective - Vital Signs Vital signs: Vital Signs Temp 99.1 F 08/13/20 06:34 Pulse 66 08/13/20 06:34 Resp 16 08/13/20 06:34 BP 104/62 08/13/20 06:34 Pulse Ox 100 08/13/20 06:34 Intake & Output 08/12/20 08/13/20 08/13/20 18:59 06:59 18:59 Output Total 800 Balance -800 Weight 77.111 kg Output: Urine 300 Emesis 500 Other: Voiding Method Toilet Diaper # Voids 1 - Exam General appearance: The patient is alert, oriented, appears in no acute distress. HET: Head is normocephalic and atraumatic. Conjunctiva pink. Sclera anicteric. Neck: Supple without lymphadenopathy. Abdomen: Soft, nontender, nondistended with bowel sounds. No guarding or rigidity. Extremities: Normal skin color and turgor. No pedal edema Skin: No rashes, no jaundice Neurological: No focal deficits. Alert and oriented 3. - Labs CBC & Chem 7: 08/12/20 05:48 08/12/20 05:48 Labs: Abnormal Lab Results - Last 24 Hours (Table) 08/12/20 08/12/20 Range/Units 05:48 05:48 WBC 12.94 H (4.50-10.00) X 10*3/uL Immature Gran # 0.08 H (0.00-0.04) X 10*3/uL Neutrophils # 8.65 H (1.80-7.70) X 10*3/uL Monocytes # 1.06 H (0.20-1.00) X 10*3/uL Chloride 95 L (96-109) mmol/L Carbon Dioxide 33.9 H (21.6-31.8) mmol/L Est GFR (CKD-EPI)AfAm 57.7 L (60.0-200.0) Est GFR (CKD-EPI)NonAf 49.8 L (60.0-200.0) Glucose 143 H (70-110) mg/dL Assessment and Plan (1) Nausea & vomiting Narrative/Plan: History 85-year-old gentleman who presented to the hospital with persistent nausea and vomiting and progressive weight loss of 30 pounds in the last 3 months duration. He had 2 upper endoscopies done by a Dr. Dawkins on 33 as well as 310 which revealed cricopharyngeal hypertrophy the stricture that was dilated, but the scope was able to be advanced into the stomach and duodenum all the way into the fourth part of the duodenum. There was no obvious duodenal obstruction identified. CT scans done during his previous hospitalization and during this hospitalization once again showed a large and dilated fluid-filled stomach. During the last upper endoscopy there was almost 2 L of fluid was aspirated from the stomach. The patient lost about 30 pounds since the onset of these symptoms, hence possibility of proximal small bowel obstruction needs to be excluded. Current Visit: Yes Status: Acute Code(s): R11.2 - NAUSEA WITH VOMITING, UNSPECIFIED SNOMED Code(s): 39572631 (2) Disorder of upper esophageal sphincter Current Visit: No Status: Acute Code(s): K22.9 - DISEASE OF ESOPHAGUS, UNSPECIFIED SNOMED Code(s): 113837528 (3) Weight loss, unintentional Current Visit: Yes Status: Acute Code(s): R63.4 - ABNORMAL WEIGHT LOSS SNOMED Code(s): 538796276 Plan: 1. Upper GI small bowel series ordered to rule out proximal small bowel obstruction, pending results 2. Continue symptomatic and supportive care 3. Continue Protonix 40 mg twice daily 4. Surgical services on consult, appreciate Dr. Regalado's recommendations 5. Keep nothing by mouth at this time 6. MRI ordered per surgical services pending results Thank you for this consultation, we will continue to follow closely Dr. Juani Reynoso I agree with the dictator's note, documented as a scribe by Cecilia Rivera.
--- NOTE | 2020-08-13 13:39 | P.PN ---
Subjective Patient is very pleasant 85-year-old male came in with complains of nausea vomiting has been going on for about 5-7 days. Patient denied any diarrhea was having some minimal nonspecific diffuse abdominal pain. Patient had a CT of the abdomen which showed distended stomach consistent with gastric outlet obstruction or gastroparesis. Patient is undergoing MRI to assess the duodenal area better. Patient doesn't have any fever chills. 08/13/2020 MRI of the abdomen is still pending patient was a valid by gastric body and surgery patient is also undergoing upper GI barium swallow patient had esophageal dilatation procedures in the past. Patient overall feels much better today Constitutional: Denied any fatigue denied any fever. Cardio vascular: denied any chest pain, palpitations Gastrointestinal denied any nausea vomiting Pulmonary: Denied any shortness of breath cough Neurologic denied any new focal deficits All inpatient medications were reviewed and appropriate changes in these medications as dictated in the interval history and assessment and plan. Objective - Vital Signs Vital signs: Vital Signs Temp 99.1 F 08/13/20 06:34 Pulse 66 08/13/20 10:39 Resp 16 08/13/20 10:39 BP 104/62 08/13/20 06:34 Pulse Ox 100 08/13/20 06:34 Intake & Output 08/12/20 08/13/20 08/13/20 18:59 06:59 18:59 Output Total 800 Balance -800 Weight 77.111 kg 77.111 kg Output: Urine 300 Emesis 500 Other: Voiding Method Toilet Toilet Diaper Diaper Incontinent # Voids 1 1 - Exam PHYSICAL EXAMINATION: GENERAL: The patient is alert and oriented x3, not in any acute distress. Well developed, well nourished. HEENT: Pupils are round and equally reacting to light. EOMI. No scleral icterus. No conjunctival pallor. Normocephalic, atraumatic. No pharyngeal erythema. No thyromegaly. CARDIOVASCULAR: S1 and S2 present. No murmurs, rubs, or gallops. PULMONARY: Chest is clear to auscultation, no wheezing or crackles. ABDOMEN: Soft, nontender, nondistended, normoactive bowel sounds. No palpable organomegaly. MUSCULOSKELETAL: No joint swelling or deformity. EXTREMITIES: No cyanosis, clubbing, or pedal edema. NEUROLOGICAL: Gross neurological examination did not reveal any focal deficits. SKIN: No rashes. - Labs CBC & Chem 7: 08/12/20 05:48 08/12/20 05:48 Assessment and Plan Plan: -Nausea vomiting: Most probably secondary to gastric outlet obstruction or questionable mass for which patient is undergoing MRI of the abdomen as per Gen. surgery patient with continued on IV fluids. Patient will also undergo upper GI bowel surgeries. Patient had history of multiple esophageal dilatation procedures -Hypertension patient blood pressure is low normal at this time. Blood pressure medications will be held temporarily -Acute renal failure: Patient will be continued on IV fluids repeat basic metabolic profile tomorrow -Leukocytosis reactive without any evidence of infection at this time -DVT prophylaxis with Lovenox
--- NOTE | 2020-08-13 14:58 | P.PN ---
Subjective Progress Note Date: 08/13/20 CHIEF COMPLAINT: Intractable nausea and vomiting HISTORY OF PRESENT ILLNESS: The patient is a 85-year-old male who presents with recurrent cough including duodenal obstruction with intractable nausea and vomiting ongoing for over 3+ months. 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 He has pre-existing history of 30+ pound weight loss including abnormal computed tomography scan of questionable mass or lesion along the junction of the duodenum versus jejunum. Upper GI and MRI of the abdomen has been ordered and pending. Patient has been nothing by mouth. His and daughter are at bedside providing most of his history as patient has worsening dementia. Otherwise, he denies any active abdominal pain. REVIEW OF ORGAN SYSTEMS: Reports persistent cough. Denies chest pain. Denies fevers or chills. PHYSICAL EXAM: VITALS: Reviewed CONSTITUTIONAL: Well developed and in no acute distress. EYES: Conjuctivae without sclera icterus. Extraocular movements grossly intact. HEAD, EARS, NOSE, THROAT: Moist buccal mucosa. Head is atraumatic, normocephalic. Hears conversational speech. No nasal drainage. NECK: No thyroidomegaly. RESPIRATORY: Non-labored respirations and equal bilateral excursions. No gross wheezes. CARDIOVASCULAR: Irregular rate and irregular rhythm. ABDOMEN: Soft. No peritonitis MUSCULOSKELETAL: Nail and fingers with good capillary refill. SKIN: Warm and well perfused with good skin turgor. NEUROLOGIC: Cranial nerves II through XII grossly intact. Sensation upper and extremities intact. No focal or lateralizing signs. PSYCH: Appropriate affect. Alert and oriented to person. CLINCAL LABS: Reviewed. WBC elevated at over 12,000. ASSESSMENT: 1. Pre-existing history of severe esophageal stenosis, upper esophagus 2. Intractable nausea and vomiting 3. Abnormal computed tomography scan for duodenal obstruction 4. Severe dementia 5. Atrial fibrillation/flutter PLAN: 1. Additional diagnostic studies including MRI should be able to identify potential intraluminal versus extraluminal compression at the junction of the duodenum/jejunum for his persistent duodenal obstruction 2. Pending findings, possible transfer to tertiary care center described for duodenal mass or obstruction. 3. Otherwise, nutrition with TPN reviewed. 4. GI following. 5. Weekend coverage provider described. 6. All questions were answered with the patient and family. Objective - Vital Signs Vital signs: Vital Signs Temp 99.1 F 08/13/20 06:34 Pulse 66 08/13/20 10:39 Resp 16 08/13/20 10:39 BP 104/62 08/13/20 06:34 Pulse Ox 100 08/13/20 06:34 Intake & Output 08/12/20 08/13/20 08/13/20 18:59 06:59 18:59 Output Total 800 Balance -800 Weight 77.111 kg 77.111 kg Output: Urine 300 Emesis 500 Other: Voiding Method Toilet Toilet Diaper Diaper Incontinent # Voids 1 1 - Labs CBC & Chem 7: 08/12/20 05:48 08/12/20 05:48 Assessment and Plan (1) Nausea & vomiting Current Visit: Yes Status: Acute Code(s): R11.2 - NAUSEA WITH VOMITING, UNSPECIFIED SNOMED Code(s): 75298297 (2) Weight loss, unintentional Current Visit: Yes Status: Acute Code(s): R63.4 - ABNORMAL WEIGHT LOSS SNOMED Code(s): 656714854 (3) Chronic anticoagulation Current Visit: No Status: Acute Code(s): Z79.01 - LONGTERM (CURRENT) USE OF ANTICOAGULANTS SNOMED Code(s): 399739261 (4) Dementia Current Visit: No Status: Acute Code(s): F03.90 - UNSPECIFIED DEMENTIA WITHOUT BEHAVIORAL DISTURBANCE SNOMED Code(s): 40869939 (5) Duodenal obstruction Current Visit: No Status: Acute Code(s): K31.5 - OBSTRUCTION OF DUODENUM S NOMED Code(s): 06303428 (6) Dysphagia Current Visit: No Status: Acute Code(s): R13.10 - DYSPHAGIA, UNSPECIFIED SNOMED Code(s): 32151946 (7) Upper esophageal web Current Visit: No Status: Acute Code(s): Q39.4 - ESOPHAGEAL WEB SNOMED Code(s): 91463628
--- NOTE | 2020-08-13 15:31 | MR ---
EXAMINATION TYPE: MR abdomen wo/w con DATE OF EXAM: 08/13/2020 COMPARISON: CT abdomen pelvis 2 days ago HISTORY: Duodenal mass/obstruction. Nausea and Vomiting. Possible mass on CT, recent significant weig ht loss. CONTRAST: Standard multiplanar, multisequence MRI departmental protocol utilizing 7.5 mL intravenous Gadavist g adolinium contrast. Imaging performed of the abdomen. Diffusion weighted imaging performed. FINDINGS: Exam noted suboptimal as patient unable to breath. Lung bases remain clear. Liver, spleen, and gallbladder appear within normal limits. Pancreas remains present with mild generalized narrowing due to mass effect from distended stomach. Slight thickening to both adrenal glands show signal dropout consistent with benign lipid rich hyperplasia. There is 2 .4 cm thin-walled cysts in the left kidney upper pole level bilaterally. Cortical thinning both kidne ys. No hydronephrosis. No intra-abdominal ascites. Osseous structures are intact. Persistent fluid distended stomach and fluid distended first second and proximal third portion of duo denum up to level where there is persistent filling defect suspected enhancing mass. On T2 coronal im ages there is poor visualization of central residual canal, on axial images significant narrowing but presence of canal is identified which correlates with CT findings. Distal to this no suspicious whitney l dilatation is present. 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
[2020-08-14] MEDS: PANTOPRAZOLE 40 MG/10 ML VIAL IVP SCH ×2 (07:45→21:14)
[2020-08-14] MEDS ORDERED: IV FLUID CONTINUATION 1,000 ML IV ONE (08:07)
[2020-08-14] MEDS ORDERED: LIDOCAINE 1% INJ 10MG/ML (20 ML MDV) ONE (08:08)
[2020-08-14] MEDS ORDERED: PROPOFOL 10 MG/ML 20 ML VIAL IV ONE (08:08)
--- NOTE | 2020-08-14 08:37 | P.PCN ---
Date of Procedure: 08/14/20 Procedure(s) Performed: BRIEF HISTORY: Patient is a 85-year-old, pleasant, admitted hospital with persistent nausea vomiting and progressive weight loss of 30 pounds in the last 2 months duration. He had an upper endoscopy done by Dr. Regalado on July 28 as well as August 04 that revealed cricopharyngeal stricture that was dilated and the scope was advanced into the third and fourth part duodenum and no obvious masses identified. Because of the persistent symptoms the patient was readmitted to the hospital. He had an MRI of the abdomen done yesterday that once again showed a soft tissue mass in the third part of the duodenum and hence he scheduled for a repeat upper endoscopy today.. PROCEDURE PERFORMED: Esophagogastroduodenoscopy/enteroscopy. PREOPERATIVE DIAGNOSIS: Nausea vomiting/weight loss of [address] and MRI of abdomen showed soft tissue mass in the third part of the duodenum. IV sedation per anesthesia. PROCEDURE: After informed consent was obtained, the patient was brought into the endoscopy unit. IV sedation was administered by Anesthesia under continuous monitoring. Initially the Olympus GIF-140 video endoscope was inserted into the mouth. Esophagus intubated without any difficulty. It was gradually advanced into the stomach and duodenum and carefully examined. I was not able to advance the scope to the third part of the duodenum and hence the scope was removed and a reactive colonoscope was then replaced in the rectum and gradually advanced into the esophagus stomach and duodenum. The scope was advanced into the third part of the duodenum into the fourth part and this time there was complete obstruction noted. There was a friable polypoid lesion identified with crowding of the mucosal folds and despite multiple attempts I was not able to advance the scope any further. I tried to perform biopsies but was not successful because of the location of the polypoid lesion and despite multiple attempts the scope was falling out into the duodenal bulb. After trying this for several attempts I terminated. The bulb and the second part and third part of the duodenum appeared normal. The scope at this time was withdrawn to the stomach, adequately insufflated with air, and upon careful examination, mucosa of the antrum, body, cardia and the fundus appeared normal. Approximately 400 mL of thick was aspirated from the stomach. There was gastritis noted. The scope was then withdrawn into the esophagus. The GE junction was located at 39 cm from the incisors. There were linear erosions in the distal esophagus consistent with LA grade C reflux esophagitis. Esophagus esophagus appeared normal and the patient tolerated the procedure well. IMPRESSION: 1. Friable polypoid lesion noted in the fourth part of the duodenum with complete obstruction and crowding of mucosal folds in this area and the scope could not be advanced beyond this area. Biopsies could not be performed as described above. 2. Retained fluid in the duodenum as well as stomach consistent with gastric outlet obstruction 3. Severe reflux esophagitis 4. Mild antral gastritis. RECOMMENDATIONS: The findings of this examination were discussed with the patient as well as his family. Recommend transferring him to [facility] for further management of duodenal obstruction related to possible neoplastic process..
[2020-08-14 10:28] LABS: African American GFR (CKD) 63.5 (60.0-200.0); Anion Gap 10.1 mmol/L (4.00-12.00); BUN/Creat Ratio 21.67 Ratio (12.00-20.00); Calcium 8.4 mg/dL (8.7-10.3); Carbon Dioxide 27.9 mmol/L (21.6-31.8); Non-African American GFR(CKD) 54.8 (60.0-200.0); Potassium 3.7 mmol/L (3.5-5.5)
[2020-08-14] MEDS: DEXTROSE 5%-0.9% NACL 1,000 ML IV SCH ×2 (11:02→22:16)
[2020-08-14] MEDS: METOPROLOL TARTRATE 50 MG TAB PO SCH ×2 (11:05→21:13)
[2020-08-14] MEDS: ENOXAPARIN 40 MG/0.4 ML SYRINGE SQ SCH (11:05)
--- NOTE | 2020-08-14 11:43 | P.PN ---
Subjective Progress Note Date: 08/14/20 Principal diagnosis: Duodenal mass Patient without new complaints. No vomiting. Upper endoscopy results from today discussed in detail with family. Objective - Vital Signs Vital signs: Vital Signs Temp 98.1 F 08/14/20 06:45 Pulse 116 H 08/14/20 11:00 Resp 16 08/14/20 11:00 BP 108/70 08/14/20 11:00 Pulse Ox 95 08/14/20 11:00 Intake & Output 08/13/20 08/14/20 08/14/20 18:59 06:59 18:59 Intake Total 475 100 400 Output Total 350 Balance 125 100 400 Weight 77.111 kg Intake: IV 400 Intake, IV Titration 425 Amount Sodium Chloride 0.9% 1, 425 000 ml @ 75 mls/hr IV . [id number] [facility] Rx#:[id number] Oral 50 100 Output: Urine 350 Other: Voiding Method Toilet Toilet Diaper Diaper Incontinent Incontinent # Voids 2 2 - Exam Abdomen: Soft, nondistended, nontender - Labs CBC & Chem 7: 08/12/20 05:48 08/14/20 05:13 Labs: Abnormal Lab Results - Last 24 Hours (Table) 08/14/20 Range/Units 05:13 Est GFR (CKD-EPI)NonAf 54.8 L (60.0-200.0) BUN/Creatinine Ratio 21.67 H (12.00-20.00) Ratio Calcium 8.4 L (8.7-10.3) mg/dL Assessment and Plan (1) Duodenal mass Narrative/Plan: Endoscopy findings discussed with patient and family. Agree with plans for tertiary evaluation for biopsy and subsequent alleviation of obstruction either by resection, stent placement, or bypass. Current Visit: Yes Status: Acute Code(s): K31.89 - OTHER DISEASES OF STOMACH AND DUODENUM SNOMED Code(s): 195729095
[2020-08-14] MEDS: SODIUM CHLORIDE 0.9% 1,000 ML IV SCH (12:33)
[2020-08-14] MEDS: ONDANSETRON 4 MG/2 ML VIAL IVP PRN (16:36)
--- NOTE | 2020-08-14 18:33 | P.PN ---
Subjective Patient is very pleasant 85-year-old male came in with complains of nausea vomiting has been going on for about 5-7 days. Patient denied any diarrhea was having some minimal nonspecific diffuse abdominal pain. Patient had a CT of the abdomen which showed distended stomach consistent with gastric outlet obstruction or gastroparesis. Patient is undergoing MRI to assess the duodenal area better. Patient doesn't have any fever chills. 08/13/2020 MRI of the abdomen is still pending patient was a evaluated by gastroenterology and surgery patient is also undergoing upper GI barium swallow patient had esophageal dilatation procedures in the past. Patient overall feels much better today. 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 Patient underwent upper GI endoscopy with enteroscopy by gastroenterology which showed friable polypoid lesion in the fourth part of the abdomen with complete obstruction. The significant retained fluid in the deodenum. There is severe reflux esophagitis and mild and antral gastritis. Constitutional: Denied any fatigue denied any fever. Cardio vascular: denied any chest pain, palpitations Gastrointestinal denied any nausea vomiting Pulmonary: Denied any shortness of breath cough Neurologic denied any new focal deficits All inpatient medications were reviewed and appropriate changes in these medications as dictated in the interval history and assessment and plan. Objective - Vital Signs Vital signs: Vital Signs Temp 97.4 F L 08/14/20 13:50 Pulse 115 H 08/14/20 13:50 Resp 16 08/14/20 14:00 BP 123/81 08/14/20 13:50 Pulse Ox 91 L 08/14/20 13:50 Intake & Output 08/13/20 08/14/20 08/14/20 18:59 06:59 18:59 Intake Total 475 100 400 Output Total 350 240 Balance 125 100 160 Weight 77.111 kg Intake: IV 400 Intake, IV Titration 425 Amount Sodium Chloride 0.9% 1, 425 000 ml @ 75 mls/hr IV . [id number] [facility] Rx#:[id number] Oral 50 100 Output: Urine 350 240 Other: Voiding Method Toilet Toilet Toilet Diaper Diaper Diaper Incontinent Incontinent Incontinent # Voids 2 2 3 # Bowel Movements 0 - Exam PHYSICAL EXAMINATION: GENERAL: The patient is alert and oriented x3, not in any acute distress. Well developed, well nourished. HEENT: Pupils are round and equally reacting to light. EOMI. No scleral icterus. No conjunctival pallor. Normocephalic, atraumatic. No pharyngeal erythema. No thyromegaly. CARDIOVASCULAR: S1 and S2 present. No murmurs, rubs, or gallops. PULMONARY: Chest is clear to auscultation, no wheezing or crackles. ABDOMEN: Soft, nontender, nondistended, normoactive bowel sounds. No palpable organomegaly. MUSCULOSKELETAL: No joint swelling or deformity. EXTREMITIES: No cyanosis, clubbing, or pedal edema. NEUROLOGICAL: Gross neurological examination did not reveal any focal deficits. SKIN: No rashes. - Labs CBC & Chem 7: 08/12/20 05:48 08/14/20 05:13 Labs: Abnormal Lab Results - Last 24 Hours (Table) 08/14/20 Range/Units 05:13 Est GFR (CKD-EPI)NonAf 54.8 L (60.0-200.0) BUN/Creatinine Ratio 21.67 H (12.00-20.00) Ratio Calcium 8.4 L (8.7-10.3) mg/dL Assessment and Plan Plan: -Nausea vomiting: Secondary to gastric outlet obstruction and a mass in the fourth part of the duodenum. Patient will need dilatation and stenting along with biopsy for which patient will need to be transferred to higher level facility. Discussed with [facility]'s who accepted the patient. -Hypertension patient blood pressure is normal holding all his antidepressive me dications at this time. -Acute renal failure: Patient will be continued on IV fluids repeat basic dc tabolic profile tomorrow improved and present creatinine is 1.2 -Leukocytosis reactive without any evidence of infection at this time -DVT prophylaxis with Lovenox
--- NOTE | 2020-08-14 18:37 | P.DS ---
Providers Date of admission: 08/13/20 16:23 Attending physician: Allyson Zepeda Consults: 08/11/20 20:16 Consult Physician Urgent Consulting Provider: Dana Regalado Consult Reason/Comments: intractable n/v, hx duodenal obstruction Do you want consulting provider notified?: Yes 08/11/20 20:17 Consult Physician Urgent Consulting Provider: Nidia Reynoso Consult Reason/Comments: intractable n/v, hx duodenal obstruction Do you want consulting provider notified?: Yes Primary care physician: Mariano Pro MD Hospital Course: Patient is admitted for nausea vomiting multiple episodes and found to be dehydrated was receiving IV fluids found to have distended stomach and gastric outlet obstruction. Patient had history of multiple esophageal dilatation procedures in the past in the past patient had similar gastric outlet obstruction at that time nothing was seen in the upper GI endoscopy and enteroscopy. 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 Patient underwent upper GI endoscopy again today morning with enteroscopy which showed friable polypoid lesion in the fourth part of the duodenum with complete obstruction. The significant retained fluid in the deodenum. There is severe reflux esophagitis and mild and antral gastritis. Gastroenterology recommended transfer to tertiary facility for dilatation and stenting along with biopsy. Assessment and Plan Plan: -Nausea vomiting: Secondary to gastric outlet obstruction and a mass in the fourth part of the duodenum. Patient will need dilatation and stenting along with biopsy for which patient will need to be transferred to higher level facility. Discussed with [facility]'s who accepted the patient. -Hypertension patient blood pressure is normal holding all his antidepressive medications at this time. -Acute renal failure: Patient will be continued on IV fluids repeat basic metabolic profile tomorrow improved and present creatinine is 1.2 -Leukocytosis reactive without any evidence of infection at this time -DVT prophylaxis with Lovenox Patient Condition at Discharge: Stable Plan - Discharge Summary Discharge Rx Participant: No New Discharge Prescriptions: No Action lisinopriL 40 mg PO HS amLODIPine [Norvasc] 2.5 mg PO HS Metoprolol Tartrate [Lopressor] 50 mg PO BID Rivaroxaban [Xarelto] 15 mg PO DIRECTED Omeprazole [PriLOSEC] 40 mg PO HS Discharge Medication List Metoprolol Tartrate [Lopressor] 50 mg PO BID 07/24/20 [History] amLODIPine [Norvasc] 2.5 mg PO HS 07/24/20 [History] lisinopriL 40 mg PO HS 07/24/20 [History] Omeprazole [PriLOSEC] 40 mg PO HS 08/11/20 [History] Rivaroxaban [Xarelto] 15 mg PO DIRECTED 08/11/20 [History] Follow up Appointment(s)/Referral(s): Mariano Pro MD [Primary Care Provider] - 1-2 days
--- NOTE | 2020-08-14 18:56 | XR ---
EXAMINATION TYPE: XR chest 1V DATE OF EXAM: 08/14/2020 COMPARISON: 08/11/2020 HISTORY: Short of breath TECHNIQUE: Single view FINDINGS: There is some airspace infiltrate in the lower lobes bilaterally. There is no heart failure . Heart appears enlarged. There is slight blunting right costophrenic angle.. There are chest leads. IMPRESSION: There is evidence for new Bilateral lower lobe pulmonary infiltrates compared to recent exam. No obvious heart failure. There i s probably new small right pleural effusion.
[2020-08-14 19:59] VITALS: BP 149/91; PULSE 96; RESP 18; TEMP 97.9
--- NOTE | 2020-08-16 11:58 | CDI ---
Documentation Clarification Form Date: 08/16/2020 11:56:00 AM From: Rachel Iniguez CCS Admit Date: 08/13/2020 04:23:00 PM Patient Name: Balaji Ornelas Visit Number: [id number] Discharge Date: 08/15/2020 12:00:00 AM ATTENTION: The Clinical Documentation Specialists (CDI) and [facility] Coding Staff appreciate your assistance in clarifying documentation. Please respond to the clarification below the line at the bottom and electronically sign. The CDI & [facility] Coding staff will review the response and follow-up if needed. Please note: Queries are made part of the Legal Health Record. If you have any questions, please contact the author of this message via ITS. Dr. Javon Chao Atrial Fibrillation is documented in the Consult, H&P, PNs. History/Risk Factors: HTN, Gastric outlet obstruction, Hx CABG Clinical Indicators: Hx AFIB Vitals: BP 107/76, RR 18, MT 87, O2 Sat 97 Treatment: Xarelto 15 mg PO In your professional opinion, can you please clarify the type of Atrial Fibrillation, if known? Chronic/Permanent Paroxysmal Persistent Other, please specify Unable to determine MTDD
== END 2020-08-15 | disposition short-term general hospital (02) | DRG 374 ==
LOC: EC 16:23 → 6NMEDSUR 19:48 → 1SOBS 08-12 14:49 → OBSVTOIN 08-13 16:23 → 6NMEDSUR 08-13 19:46
PROVIDERS: ADMIT Hospitalist; ATTEND Hospitalist
PROC: 0DJ08ZZ Inspection of Upper Intestinal Tract, Via Natural or Artificial Opening Endoscopic (ICD-10-PCS; principal; 2020-08-14 08:00)
DX: C17.0 Malignant neoplasm of duodenum (principal); Q39.4 Esophageal web; N17.9 Acute kidney failure, unspecified; I48.92 Unspecified atrial flutter; K31.1 Adult hypertrophic pyloric stenosis; F03.90 Unspecified dementia, unspecified severity, without behavioral disturbance, psychotic disturbance, mood disturbance, and anxiety; I48.91 Unspecified atrial fibrillation; Z20.822 Contact with and (suspected) exposure to COVID-19; K21.00 Gastro-esophageal reflux disease with esophagitis, without bleeding; K29.70 Gastritis, unspecified, without bleeding; I10 Essential (primary) hypertension; D72.829 Elevated white blood cell count, unspecified; J39.2 Other diseases of pharynx; K44.9 Diaphragmatic hernia without obstruction or gangrene; N40.0 Benign prostatic hyperplasia without lower urinary tract symptoms; R63.4 Abnormal weight loss; K22.2 Esophageal obstruction; R32 Unspecified urinary incontinence; E86.0 Dehydration; E78.5 Hyperlipidemia, unspecified; Z68.25 Body mass index [BMI] 25.0-25.9, adult; Z71.3 Dietary counseling and surveillance; Z79.01 Long term (current) use of anticoagulants; Z79.899 Other long term (current) drug therapy; Z90.79 Acquired absence of other genital organ(s); Z86.010 Personal history of colon polyps; Z98.890 Other specified postprocedural states; Z98.42 Cataract extraction status, left eye; Z98.41 Cataract extraction status, right eye; Z96.1 Presence of intraocular lens; Z95.1 Presence of aortocoronary bypass graft; Z83.3 Family history of diabetes mellitus
CPT/HCPCS: 36415; 43235; 71045; 74177; 74183; 80048; 80053; 85025; 87635; 96374; 96375; 99284